=== PATIENT | female | born 1945 | race Caucasian/White ===

== ENCOUNTER → 2016-07-15 | Outpatient (CLI) | payer OTHER, MEDICARE ==
[~2016-07-15] MED LIST: B-COCAP2 PO; CHOL100010; DSY100 PO; ERGO500037 PO; FAMO40TA6 PO; FURO40TA3 PO; HYDR-3126 PO; HYDR-3785 PO; HYDR-389 PO; HYDR-5688 PO; LISI-461 PO; LORA-741 PO; MELA1TAB5 PO; MELO15TA4 PO; METO25TA3 PO; NRN/300 PO; NRN600 PO; NXM/40 PO; PANT40TA PO; RXC5 PO; TPRSR/50; TRZUNK PO
--- NOTE | 2016-07-15 14:11 | DIAGNOSTIC IMAGING REPORT ---
MRI OF THE LUMBAR SPINE WITHOUT CONTRAST CLINICAL HISTORY: Lumbar pain. COMPARISON STUDY: No previous studies for comparison. TECHNIQUE: Utilizing a 0.7 Mary open magnet and dedicated coil, multiplanar, multiecho imaging of the lumbar spine was performed without IV contrast. FINDINGS: For purposes of numbering on this exam, the L5-S1 disc space is assigned to axial image 23 of 25. There is 4 mm of anterolisthesis of L4 and L5. Vertebral body heights are maintained. There is no intracanalicular mass or fluid collection. Conus terminates at the lower L1 level. Paravertebral soft tissues are unremarkable. L1-2: There is a small central disc protrusion. The central canal and neural foramen are patent. L2-3: Central canal and neural foramen are patent. L3-4: Central canal and neural foramen are patent. L4-5: There is grade I anterolisthesis. This is likely due to facet arthrosis which is moderate in degree. There is an 8 mm T2 hyperintense focus within the posterior aspect of the left neural foramen and a 6 mm T2 hypertense focus within the posterior aspect of the right neural foramen. There is mild narrowing of the central canal and lateral recesses at this level with severe narrowing of the left neural foramen moderate narrowing of the right neural foramen. L5-S1: The central canal and neural foramen are patent. IMPRESSION: 1. Grade I anterolisthesis of L4 and L5 likely due to facet arthrosis. 2. Small central disc protrusion at L1-L2 without concentric canal narrowing at this level. 3. Severe left and moderate right neural foraminal stenosis at L4-L5 due to anterolisthesis and facet arthrosis. Small T2 hypertense foci within the posterior aspects of both neural foramen at this level could reflect small synovial cysts or perineural cysts. Electronically signed by: Eddie Kimble M.D. 07/15/2016 2:09 PM Dictated Date/Time: 07/15/2016 2:00 PM
== END | disposition home or self-care (01) ==
LOC: C.OPENMRI 12:40
PROVIDERS: ATTEND Orthopaedic Surgery Orthopaedic Surgery of the Spine
DX: M54.5 Low back pain (principal)

== ENCOUNTER 2016-08-14 10:48 | Inpatient (IN) | payer OTHER, MEDICARE ==
[2016-08-02 09:04] VITALS: BMI 43.0
--- NOTE | 2016-08-02 09:38 | PAT Medication Instructions ---
Service Date August 02, 2016. Current Home Medication List Cholecalciferol (Vitamin D), Unknown Dose WK Famotidine (Pepcid), 40 MG PO HS Furosemide (Lasix), 1 TAB PO QAM Gabapentin (Gabapentin), 600 MG PO TID Hydrocodone/Acetaminophen 5MG/325MG ([place] 5MG/325MG), 1 TABLET PO Q8 PRN for Pain Hydroxyzine Hcl (Atarax), Unknown Dose PO BID Lisinopril (Zestril), 10 MG PO QAM Lorazepam (Ativan), 0.5 MG PO TID Melatonin (Kp Melatonin), 1 TAB PO HS Meloxicam (Meloxicam), PO QAM Metoprolol Succinate (Toprol Xl), Unknown Dose PO QAM Pantoprazole (Protonix), 40 MG PO QAM Trazodone HCl (Trazodone HCl), 1 TAB PO HS Medication Instructions For Your Scheduled Surgery Cholecalciferol (Vitamin D), Unknown Dose WK (continue as usual on Sundays) - Hold the following medications the morning of surgery: Lisinopril (Zestril), 10 MG PO QAM Meloxicam (Meloxicam), PO QAM (not told to stop by surgeon) Furosemide (Lasix), 1 TAB PO QAM - Take the following medications the morning of surgery with a sip of water: Metoprolol Succinate (Toprol Xl), Unknown Dose PO QAM Pantoprazole (Protonix), 40 MG PO QAM Lorazepam (Ativan), 0.5 MG PO TID (if needed) Hydroxyzine Hcl (Atarax), Unknown Dose PO BID (if needed) Hydrocodone/Acetaminophen 5MG/325MG ([place] 5MG/325MG), 1 TABLET PO Q8 PRN for Pain (can take up to four hours prior to surgery if needed) Gabapentin (Gabapentin), 600 MG PO TID (if needed) - Take the following medications as scheduled the night before surgery: Trazodone HCl (Trazodone HCl), 1 TAB PO HS Melatonin (Kp Melatonin), 1 TAB PO HS Lorazepam (Ativan), 0.5 MG PO TID Hydroxyzine Hcl (Atarax), Unknown Dose PO BID Hydrocodone/Acetaminophen 5MG/325MG ([place] 5MG/325MG), 1 TABLET PO Q8 PRN for Pain Gabapentin (Gabapentin), 600 MG PO TID Famotidine (Pepcid), 40 MG PO HS If you have any questions please call us at [phone] or [phone] ( Sara) or [phone]
[2016-08-02 10:17] LABS: BASO % 0.5 %; BASO ABS # 0.02 K/uL (0-0.2); COMPLETE YES; EOS % 1.6 %; HEMATOCRIT 35.3 % (37-47); MEAN CELL VOLUME 90.5 fL (80-100); MEAN CORPUSCULAR HEMOGLOBIN 30.5 pg (25-34); MEAN CORPUSCULAR HGB CONC 33.7 g/dl (32-36); MEAN PLATELET VOLUME 9.4 fL (7.4-10.4); MONO % 14.8 %; NEUT % 39.1 %; PLATELET COUNT 143 K/uL (130-400); WHITE BLOOD COUNT 3.64 K/uL (4.8-10.8)
[2016-08-02 10:23] LABS: URINE APPEARANCE CLOUDY (CLEAR); URINE BILIRUBIN NEG (NEG); URINE COLOR YELLOW; URINE EPITHELIAL CELL AUTO >30 /lpf (0-5); URINE NITRITE NEG (NEG); URINE SPECIFIC GRAVITY 1.021 (1.000-1.030); UROBILINOGEN NEG (NEG)
--- NOTE | 2016-08-02 10:24 | DIAGNOSTIC IMAGING REPORT ---
CHEST PREADMISSION(PA/LAT) CLINICAL HISTORY: PAT preoperative evaluation COMPARISON STUDY: No previous studies for comparison. FINDINGS: The bones soft tissues and hemidiaphragms are normal. The cardiomediastinal silhouette is normal. The lungs are clear. The pulmonary vasculature is normal. IMPRESSION: Negative chest. Electronically signed by: Nuno Hudson M.D. 08/02/2016 10:22 AM Dictated Date/Time: 08/02/2016 10:22 AM
[2016-08-02 10:28] LABS: MANUAL MICROSCOPIC REQUIRED? NO; REVIEW REQ? NO
[2016-08-02 10:34] LABS: BUN/CREATININE RATIO 18.1 (10-20); CALCIUM 9.1 mg/dl (8.5-10.1); CREATININE 1.4 mg/dl (0.60-1.20); POTASSIUM 4.6 mmol/L (3.5-5.1)
[2016-08-14] VITALS (7 sets, daily range): BP systolic 132–159; BP diastolic 84–96; PULSE 61–72; TEMP 36.3–36.7; O2SAT 93–97; Ht 160 cm; Wt 111.4 kg
[~2016-08-14] VITALS: Ht 160 cm; Wt 111.4 kg
[~2016-08-14 10:48] MED LIST changes: -B-COCAP2 PO; +CEFAZOLIN 2000 MG/60 ML D5W IV SCH; -DSY100 PO; -ERGO500037 PO; -FAMO40TA6 PO; -FURO40TA3 PO; -HYDR-3126 PO; -HYDR-389 PO; +LACTATED RINGER'S 1000ML 1,000 ML IV SCH; -LISI-461 PO; -LORA-741 PO; -MELO15TA4 PO; -NRN/300 PO; -NXM/40 PO; -PANT40TA PO; -RXC5 PO; -TPRSR/50; -TRZUNK PO
--- NOTE | 2016-08-14 12:21 | History & Physical Bridge Note ---
H&P Re-Evaluation Bridge Note: I have examined the patient, reviewed the History & Physical and in the interval since the performance of the History & Physical I have noted the following changes of clinical significance: No changes noted
--- NOTE | 2016-08-14 12:22 | History and Physical ---
History & Physical Date Aug 14, 2016. Chief Complaint back and leg pain History of Present Illness The patient is a 71 year old female with complaints of Additional History Hepatic Disease: No Endocrine Disorder: No Kidney Disease: No Hypertension: No Heart Disease: No Bleeding Tendencies: No Infectious Diseases: No Allergies Coded Allergies: Meperidine (Verified Allergy, Severe, "THOUGHT I WAS DYING", HEADACHE, SOB , 08/14/16) Adhesives (Verified Allergy, Unknown, TAPE--SKIN SORENESS/RASH, 08/14/16) OKAY TO USE PAPER TAPE Home Medications Scheduled Cholecalciferol (Vitamin D), Unknown Dose WK Famotidine (Pepcid), 40 MG PO HS Furosemide (Lasix), 1 TAB PO QAM Gabapentin (Gabapentin), 600 MG PO TID Hydroxyzine Hcl (Atarax), Unknown Dose PO BID Lisinopril (Zestril), 10 MG PO QAM Lorazepam (Ativan), 0.5 MG PO TID Melatonin (Kp Melatonin), 1 TAB PO HS Meloxicam (Meloxicam), PO QAM Metoprolol Succinate (Toprol Xl), Unknown Dose PO QAM Pantoprazole (Protonix), 40 MG PO QAM Trazodone HCl (Trazodone HCl), 1 TAB PO HS Scheduled PRN Hydrocodone/Acetaminophen 5MG/325MG ([place] 5MG/325MG), 1 TABLET PO Q8 PRN for Pain Physical Examination Skin: warm/dry, no rash Eyes: normal inspection, EOMI, sclerae normal ENT: normal ENT inspection, pharynx normal Head: normocephalic, atraumatic Neck: supple, no adenopathy, trachea midline Respiratory/Chest: lungs clear, normal breath sounds, no respiratory distress Cardiovascular: regular rate, rhythm, no edema, no murmur Abdomen / GI: normal bowel sounds, non tender Back: normal inspection Extremities: normal inspection, normal range of motion Neurologic/Psych: no motor/sensory deficits, alert, normal reflexes, oriented x 3 Diagnosis lumbar stenosis Plan of Treatment decompression fusion L4-5
[2016-08-14] MEDS ORDERED: FENTANYL CITRATE INJ 50 MCG/1 ML 2 ML VIAL ONE ×3 (12:59→15:29)
[2016-08-14] MEDS ORDERED: MIDAZOLAM HCL 1 MG/ML 2ML VIAL ONE (12:59)
[2016-08-14] MEDS ORDERED: BACITRACIN 50000 UNIT VIAL ONE (13:08)
[2016-08-14] MEDS ORDERED: SODIUM CHLORIDE 0.9% PF 50 ML VIAL ONE (13:08)
[2016-08-14] MEDS ORDERED: BUPIVACAINE/EPINEPHRINE 0.5% MPF 1:200,000 30 ML VIAL ONE (13:08)
[2016-08-14] MEDS ORDERED: HYDROmorphone INJ 2 MG/ML SYR/VIAL ONE (13:38)
[2016-08-14] MEDS ORDERED: ROCURONIUM BROMIDE 10 MG/ML 5 ML VIAL ONE (13:50)
[2016-08-14] MEDS ORDERED: PROPOFOL IV EMULSION 10 MG/ML 20 ML VIAL IV ONE (13:50)
[2016-08-14] MEDS ORDERED: GLYCOPYRROLATE INJ 0.2 MG/ML VIAL ONE (13:50)
[2016-08-14] MEDS ORDERED: LIDOCAINE HCL 2% 2 ML VIAL (20MG/ML) ONE (13:50)
[2016-08-14] MEDS ORDERED: NEOSTIGMINE METHYLSULFATE 1 MG/ML 10ML VIAL ONE (13:50)
[2016-08-14] MEDS ORDERED: DEXAMETHASONE SOD INJ 4 MG/ML VIAL ONE (13:50)
[2016-08-14] MEDS ORDERED: ONDANSETRON INJ 2 MG/ML 2 ML VIAL ONE (13:50)
[2016-08-14] MEDS ORDERED: EpHEDrine SULFATE INJ 50 MG/ML AMP IV PRN (14:45)
[2016-08-14] MEDS ORDERED: PROMETHAZINE HCL INJ 6.25 MG in SODIUM CHLORIDE 0.9% 50ML 50 ML IV PRN (14:45)
[2016-08-14] MEDS ORDERED: HYDROmorphone INJ 1 MG/ML SYR IV PRN (14:45)
[2016-08-14] MEDS ORDERED: FENTANYL CITRATE INJ 50 MCG/1 ML 2 ML VIAL IV PRN (14:45)
[2016-08-14] MEDS ORDERED: ATROPINE SULFATE 0.1 MG/ML 5ML SYR IV PRN (14:45)
[2016-08-14] MEDS ORDERED: ONDANSETRON INJ 2 MG/ML 2 ML VIAL IV PRN ×2 (14:45→15:00)
[2016-08-14] MEDS ORDERED: FLOSEAL HEMOSTATIC MATRIX 10ML TOP ONE (14:56)
[2016-08-14] MEDS ORDERED: SODIUM CHLORIDE 0.9% 1000ML 1,000 ML IV SCH (14:59)
--- NOTE | 2016-08-14 14:59 | [facility] Post Operative Brief Note ---
Immediate Operative Summary Operative Date Aug 14, 2016. Pre-Operative Diagnosis Lumbar Stenosis Post-Operative Diagnosis Lumbar Stenosis Procedure(s) Performed tlif Surgeon Dr. Tomer Coates Picking Table Worker Surgeon(s) Mayda Teixeira PA-C Estimated Blood Loss 250mL Findings stenosis Specimens none per surgeon
[2016-08-14] MEDS ORDERED: METOCLOPRAMIDE HCL INJ 5 MG/ML 2 ML VIAL IV PRN (15:00)
[2016-08-14] MEDS ORDERED: BISACODYL 10 MG SUPP PR PRN (15:00)
[2016-08-14] MEDS ORDERED: LORAZEPAM INJ 0.5 MG in SYRINGE 0 ML IV PRN (15:00)
[2016-08-14] MEDS ORDERED: SOD PHOSPHATE/SOD BIPHOSPHATE ENEMA 132 ML BTL PR PRN (15:00)
[2016-08-14] MEDS ORDERED: FAMOTIDINE 20 MG TAB PO PRN (15:00)
[2016-08-14] MEDS ORDERED: ALUMINUM/MAGNESIUM SUSP 30 ML UDC PO PRN (15:00)
[2016-08-14] MEDS ORDERED: DO NOT ADMINISTER PNEUMOCOCCAL VACCINE PRN ×2 (15:00)
[2016-08-14] MEDS ORDERED: ACETAMINOPHEN IV 100 ML IV PRN (15:00)
[2016-08-14] MEDS ORDERED: LORAZEPAM 0.5 MG TAB PO PRN (15:00)
[2016-08-14] MEDS ORDERED: ACETAMINOPHEN 500 MG TAB PO PRN (15:00)
[2016-08-14] MEDS ORDERED: hydrOXYzine HCL 25 MG TAB PO PRN (15:00)
[2016-08-14] MEDS ORDERED: PROMETHAZINE HCL INJ 12.5 MG in SODIUM CHLORIDE 0.9% 50ML 50 ML IV PRN (15:00)
[2016-08-14] MEDS ORDERED: DO NOT ADMINISTER FLU VACCINE PRN ×3 (15:00)
[2016-08-14] MEDS ORDERED: NALOXONE HCL 0.4 MG/1 ML VIAL/CARP IV PRN ×2 (15:00)
[2016-08-14] MEDS ORDERED: MAGNESIUM HYDROXIDE SUSP 30 ML UDC PO PRN (15:00)
--- NOTE | 2016-08-14 15:13 | DIAGNOSTIC IMAGING REPORT ---
Lumbar spine LUMBAR SPINE 2 OR 3 VIEW CLINICAL HISTORY: L4-5 DECOMPRESSION/FUSION/INTERBODY TECHNIQUE: Image intensifier COMPARISON STUDY: None FINDINGS: Findings consistent with an L4-L5 laminectomy and fusion. Disc spacers present. IMPRESSION: L4-L5 laminectomy and fusion Electronically signed by: Nuno Hudson M.D. 08/14/2016 3:12 PM Dictated Date/Time: 08/14/2016 3:11 PM
[2016-08-14] MEDS ORDERED: HYDROmorphone HCL 0.5MG/ML 50 ML CASSETTE ONE (15:24)
--- NOTE | 2016-08-14 16:06 | Anesthesiology Progress Note ---
Anesthesia Post Op Note Date & Time Aug 14, 2016 at 16:06 Vital Signs Pain Intensity: 3 Vital Signs Past 12 Hours Date Time Temp Pulse Resp B/P (MAP) Pulse Ox O2 Delivery O2 Flow Rate FiO2 08/14/16 15:55 64 12 163/83 95 Nasal Cannula 3 08/14/16 15:45 91 12 161/88 100 Diffusion Mask 10 08/14/16 15:35 91 12 171/83 100 Diffusion Mask 10 08/14/16 15:25 91 12 163/85 100 Diffusion Mask 10 08/14/16 15:18 36.7 91 12 176/90 100 Diffusion Mask 10 08/14/16 11:28 36.4 72 18 150/89 97 Room Air Notes Mental Status: alert / awake / arousable, participated in evaluation Pt Amnestic to Procedure: Yes Nausea / Vomiting: adequately controlled Pain: adequately controlled Airway Patency, RR, SpO2: stable & adequate BP & HR: stable & adequate Hydration State: stable & adequate Anesthetic Complications: no major complications apparent
[2016-08-14] MEDS: HYDROmorphone HCL 0.5MG/ML 50 ML CASSETTE IV PRN ×2 (16:43→22:55)
--- NOTE | 2016-08-14 16:49 | OPERATIVE REPORT ---
DATE OF OPERATION: 08/14/2016 PREOPERATIVE DIAGNOSES: Spinal stenosis, spondylolisthesis. POSTOPERATIVE DIAGNOSES: Same. PROCEDURES PERFORMED: 1. Lumbar decompression, medial facetectomy, and foraminotomy L3-4, L4-5. 2. Posterior spinal fusion L4-5. 3. Placement posterior instrumentation using Orthros rods and screws L4-5. 4. Interbody fusion L4-5. 5. Placement of PEEK cage 13 x 26 mm at L4-5. 6. Placement of locally harvested morcellized autograft posterior gutters. 7. Placement of Infuse collagen sponge combined with Mastergraft in posterior gutters and Jimena bone grafting in the interbody space. SURGEON: Dr. Micah Coates. DOORKEEPER: Mayda Teixeira PA-C. Due to the complex nature of the procedure, the entire surgery was performed with the anesthesiologists' assistant of DHARMESH Dacosta. The floral assistant, under direct supervision, was involved in the actual performance of all aspects of the surgical procedure including hemostasis, tissue retraction and incision, instrument management, patient positioning, and wound closure. ANESTHESIA: General. DISPOSITION: The patient awakened and taken to PACU in stable condition. HISTORY OF PATIENT'S PROBLEMS: This is a 71-year-old female who presents with above-mentioned diagnosis after failing an extensive course of nonoperative care, elected to undergo the above-mentioned procedure. Risks, benefits, pros, cons, and alternatives were outlined in detail preoperatively. DESCRIPTION OF PROCEDURE: The patient was met with preoperatively, the case discussed and all questions were addressed. At that point, the patient was taken back to operative suite and after undergoing successful general intubation by the department of anesthesia was placed in prone position on Fernando table atop Juan frame. All bony prominences were well padded and the eyes were inspected to ensure there was no external pressure placed upon them. At this point, lumbar spine was prepped and draped in normal sterile fashion. Sharp dissection with the assistance of Bovie cautery was performed down to and exposing the lamina and transverse processes of L4-5 bilaterally. From a caudal to cephalad fashion, complete laminectomy of L4, partial laminectomy of L3 was performed addressing severe stenosis. This included bilateral medial facetectomies, foraminotomies to address compression. After this was complete, pedicle screws were placed in L4-5 bilaterally with assistance of fluoroscopy and appropriate size delmi provisionally placed. Through transforaminal approach on the right, a complete discectomy of L4-5 was performed, endplates curetted to subcortical bleeding bone and a 13 x 26 mm PEEK cage filled with Jimena bone grafting tapped into position. The rods were then compressed, locked into final position bilaterally and transverse processes of L4-5 burred to subcortical bleeding bone. Infuse collagen sponge combined with Mastergraft and locally harvested morcellized autograft was placed in the posterior gutters. A 7 flat RONNY drain was inserted. Incision was closed with 1-0 Vicryl in the fascia, 2-0 Vicryl subcutaneously, 4-0 Monocryl for final skin closure. Steri-Strips and sterile dressing placed. The patient was awakened and taken to PACU in stable condition. I attest to the content of the Intraoperative Record and any orders documented therein. Any exception s are noted below.
[2016-08-14] MEDS: LACTATED RINGER'S 1000ML 1,000 ML IV SCH ×2 (19:04→21:20)
[2016-08-14] MEDS: TRAZODONE HCL 100 MG TAB PO SCH (21:00)
[2016-08-14] MEDS: CEFAZOLIN IV 2,000 MG in DEXTROSE 5% 50ML 50 ML IV SCH (21:05)
[2016-08-14] MEDS: DOCUSATE SODIUM/SENNA 50/8.6MG TAB PO SCH (21:19)
[2016-08-14] MEDS: GABAPENTIN 600 MG TAB PO SCH (21:19)
[2016-08-14] MEDS: DEXAMETHASONE INJ 6 MG in SYRINGE 0 ML IV SCH (21:20)
[2016-08-14] MEDS: FAMOTIDINE 20 MG TAB PO SCH (21:54)
[2016-08-15 03:38] VITALS: BP 136/84; PULSE 80; TEMP 36.8; O2SAT 93
[2016-08-15] MEDS: LACTATED RINGER'S 1000ML 1,000 ML IV SCH ×2 (04:16→10:43)
[2016-08-15] MEDS: CEFAZOLIN IV 2,000 MG in DEXTROSE 5% 50ML 50 ML IV SCH (05:06)
[2016-08-15] MEDS: DEXAMETHASONE INJ 6 MG in SYRINGE 0 ML IV SCH ×2 (05:37→13:46)
[2016-08-15] MEDS: OXYCODONE HCL IR 5 MG TAB (IMMEDIATE RELEASE) PO PRN ×4 (05:39→22:01)
[2016-08-15] MEDS ORDERED: DC PCA SCH (06:00)
[2016-08-15] MEDS ORDERED: HYDROmorphone INJ 1 MG/ML SYR IV PRN ×2 (06:00)
[2016-08-15 06:46] LABS: COMPLETE YES; HEMATOCRIT 32.3 % (37-47); IG% 0.3 %; LYMPH % 9.4 %; LYMPH ABS # 0.81 K/uL (1.2-3.4); MEAN CELL VOLUME 89.2 fL (80-100); MEAN CORPUSCULAR HEMOGLOBIN 30.4 pg (25-34); MEAN CORPUSCULAR HGB CONC 34.1 g/dl (32-36); MONO % 5.6 %; NEUT % 84.7 %; PLATELET COUNT 142 K/uL (130-400); RED BLOOD COUNT 3.62 M/uL (4.2-5.4); WHITE BLOOD COUNT 8.63 K/uL (4.8-10.8)
[2016-08-15 07:13] LABS: BUN/CREATININE RATIO 17.7 (10-20); CALCIUM 8.8 mg/dl (8.5-10.1); CREATININE 1.2 mg/dl (0.60-1.20); POTASSIUM 4.6 mmol/L (3.5-5.1)
[2016-08-15 07:27] VITALS: BP 112/75; PULSE 75; TEMP 36.8; O2SAT 91
--- NOTE | 2016-08-15 08:06 | Clinical Documentation Query ---
JEANIE Willis : CLINICAL DOCUMENTATION QUERIES QUERY 1 OF 2 Patient is a 71 year old female who on 08/14 underwent posterior lumbar decompression and spinal fusion. BMI noted to be 43.5 kg/m*m. In order to capture this from the record, the associated condition (e.g. overweight, obese, etc...) must be explicitly documented by the provider. In your clinical opinion is this patient: ( ) Obese, BMI 43.5 kg/m*m ( ) Other explanation of clinical findings (Please Explain) ( ) Unable to determine (Please Define) ( ) Need to Discuss ( ) Not Agree The medical record reflects the following clinical findings, treatment, and risk factors. Clinical Indicators: As above Treatment: n/a Risk Factors: caloric intake > output, physical inactivity, medications, pain Clarification - BMI Reporting Coding Clinic [id number], p15 Question: There has been some confusion as to whether nursing staff documentation is acceptable for assigning BMI. Since hospitals are allowed to code the BMI based on the buffing line set up worker's documentation, it would seem reasonable to assign the BMI based on the nurse's documentation as well. Can coders use nursing documentation to assign the BMI? Answer: Yes, the BMI can be assigned based on medical record documentation from clinicians, including nurses and dieticians who are not the patient's provider. As stated in the Official Guidelines for Coding and Reporting, BMI code assignment may be based on medical record documentation from clinicians who are not the patient's provider, since this information is typically documented by other clinicians involved in the care of the patient. Dieticians were only mentioned as an example of a clinician that might document BMI information. However, the associated diagnosis (such as overweight, obesity, or underweight) must be documented by the provider. QUERY 2 OF 2 H&P states no PMH. However, home medication list includes: Cholecalciferol (Vitamin D), Unknown Dose WK Famotidine (Pepcid), 40 MG PO HS Furosemide (Lasix), 1 TAB PO QAM Gabapentin (Gabapentin), 600 MG PO TID Hydroxyzine Hcl (Atarax), Unknown Dose PO BID Lisinopril (Zestril), 10 MG PO QAM Lorazepam (Ativan), 0.5 MG PO TID Melatonin (Kp Melatonin), 1 TAB PO HS Meloxicam (Meloxicam), PO QAM Metoprolol Succinate (Toprol Xl), Unknown Dose PO QAM Pantoprazole (Protonix), 40 MG PO QAM Trazodone HCl (Trazodone HCl), 1 TAB PO HS and historical EMR note a history of the following. In your clinical opinion is this patient being managed for: ( ) GERD, osteoporosis, hypertension, depression, anxiety, panic disorder ( ) Other explanation of clinical findings (Please Explain) ( ) Unable to determine (Please Define) ( ) Need to Discuss ( ) Not Agree The medical record reflects the following clinical findings, treatment, and risk factors. Clinical Indicators: As above Treatment: As above Risk Factors: n/a Please clarify and document your clinical opinion in the progress notes and discharge summary. Terms such as "probable", "suspected", "likely", "questionable", "possible", or "still to be ruled out" are acceptable. IF IN AGREEMENT, YOU MUST DOCUMENT ABOVE DIAGNOSTIC STATEMENT IN DAILY PROGRESS NOTES AND DISCHARGE SUMMARY. This document is not part of the patient's record.
[2016-08-15] MEDS: PANTOprazole SOD 40 MG TAB PO SCH (08:55)
[2016-08-15] MEDS: LISINOPRIL 10 MG TAB PO SCH (08:55)
[2016-08-15] MEDS: GABAPENTIN 600 MG TAB PO SCH ×3 (08:56→21:59)
[2016-08-15] MEDS: FUROSEMIDE 40 MG TAB PO SCH (08:56)
[2016-08-15 10:28] VITALS: BP 153/89; PULSE 79; O2SAT 95
--- NOTE | 2016-08-15 10:28 | Anesthesiology Progress Note ---
Anesthesia Post Op Note Date & Time Aug 15, 2016 at 10:28 Vital Signs Pain Intensity: 5.0 Vital Signs Past 12 Hours Date Time Temp Pulse Resp B/P (MAP) Pulse Ox O2 Delivery O2 Flow Rate FiO2 08/15/16 07:27 36.8 75 16 112/75 (87) 91 Room Air 08/15/16 07:20 Room Air 08/15/16 03:38 36.8 80 16 136/84 (101) 93 Room Air 08/14/16 23:30 Room Air 08/14/16 23:21 36.6 67 16 132/87 (102) 93 Room Air Notes Mental Status: alert / awake / arousable, participated in evaluation Pt Amnestic to Procedure: Yes Nausea / Vomiting: adequately controlled Pain: adequately controlled Airway Patency, RR, SpO2: stable & adequate BP & HR: stable & adequate Hydration State: stable & adequate Anesthetic Complications: no major complications apparent
[2016-08-15 11:46] VITALS: BP 117/77; PULSE 66; TEMP 36.6; O2SAT 96
[2016-08-15] MEDS ORDERED: RXC5 PO (13:00)
--- NOTE | 2016-08-15 13:01 | Discharge Instructions ---
Discharge Instructions Date of Service Aug 15, 2016. Admission Reason for Admission: Spinal Stenosis Discharge Discharge Diagnosis / Problem: stenosis Discharge Goals Goal(s): Improve function Activity Recommendations Activity Limitations: per Instructions/Follow-up section . Instructions / Follow-Up Instructions / Follow-Up ACTIVITY RECOMMENDATIONS: SELF CARE INSTRUCTIONS AFTER THORACIC/LUMBAR FUSIONS 1. You may walk to your tolerance. It is good exercise for your legs and back. Expect some back and intermittent leg aches and pains. 2. You may perform "counter-top" level activities (make a sandwich, giuseppe with a project, etc.). 3. No bending or lifting of more than 10 pounds or back twisting of any nature (roll like a log when turning in bed). 4. You may ride in a car for 20-30 minutes at a time. No driving until after your first visit with your doctor. 5. Frequent changes of position and restricting sitting to 30 minutes at a time will help limit the amount of back spasms and stiffness you may experience. 6. You may discontinue the use of ambulatory aids (cane, crutches, etc.) once your strength and confidence allow. 7. You may culinary intern the shower and let water strike your incision when you arrive home at least once daily. Do not take a tub bath, sit in a hot tub or go into a swimming pool until after your first recheck in the office. SPECIAL CARE INSTRUCTIONS: VERY IMPORTANT TO READ AND REVIEW A. Your surgical incision has been closed with a cosmetic suture under the skin that will dissolve in about 6 weeks. In 14 days, you can use a pair of clean scissors and cut the suture that is left outside of the skin at the ends of your incision. 1. The small skin tapes can be removed 7 days after surgery if they have not fallen off by that point. 2. You may keep the wound open to air as much as possible to promote healing after post-op day number 5 unless told otherwise by your doctor. 3. If you think the wound looks like it is becoming infected (redness or worsening drainage) and/or you are experiencing fever, chill or worsening back pain and muscle spasms, contact the office so that we may evaluate you as soon as possible. B. Complications are uncommon, but please contact us if you have any signs or symptoms of: 1. wound infection (fever higher than 102.5 degrees F, redness, separation of wound, drainage, or increasing pain from the incision) 2. blood clots in legs (pain, swelling, redness and warmth in legs) 3. urinary tract infection (fever higher than 102.5 degrees F, burning upon urination or increased frequency of urination) 4. nerve problems (inability to walk on your toes or heels, numbness, loss of bowel or bladder control) 5. any other symptoms that concern you C. Please call the office at if you have any concerns or questions about your operation or recovery. D. No smoking! Smoking drastically decreases the chance of a solid fusion. E. Do not take any anti-inflammatory medications (Indocin, Advil, Motrin, Aspirin, Naprosyn, etc.) as these may inhibit the chance of a solid fusion. Tylenol is okay to take for pain. MANAGING PAIN AFTER SPINAL SURGERY 1. Narcotic medication is intended for short-term use and will be provided for surgical pain. Surgical pain usually lasts for a period of 4-6 weeks. Narcotic medication includes Percocet, Vicodin, Darvocet, Tylenol #3 or Lortab. 2. Longer-term pain is more appropriately treated with non-narcotic medication such as Tylenol ES. 3. Muscle spasm is not appropriately treated with narcotics. Muscle relaxers such as Soma, Flexeril or Skelaxin can be used along with Tylenol ES. 4. Remember that we all live with some "aches and pains". This is not unusual or uncommon after an injury or as we get older. a. Back pain is expected and may include muscle spasms for 4 to 6 weeks after surgery. The pain should gradually improve. If the pain worsens for no apparent reason, please contact the office. b. Intermittent leg pain may also be experienced and should not be concerned about unless it worsens for no apparent reason. If so, please contact the office. 5. We will provide appropriate medication within the normal guidelines of their prescribed use. We will also be very cautious and aware of potential abuse and extended duration of patients' medication needs. a. Pain medications are for your comfort and to assist with sleep and rest so that the tissue can heal. They are not provided in order to return to normal activity and should not be used through the day. To do so or worsening pain at night can result from ongoing tissue damage and development of tolerance to the prescribed medicine. 6. Please allow 2-3 days to process refills. Prescriptions will not be mailed but must be picked up at the office. FOLLOW UP VISIT: Keep your scheduled follow-up appointment. Any questions, please call the office at . Current Hospital Diet Patient's current hospital diet: Regular Diet Discharge Diet Recommended Diet: Regular Diet Procedures Procedures Performed: tlif Pending Studies Studies pending at discharge: no Medical Emergencies . Who to Call and When: Medical Emergencies: If at any time you feel your situation is an emergency, please call 911 immediately. . Non-Emergent Contact Non-Emergency issues call your: Primary Care Provider . "Provider Documentation" section prepared by Micah Coates. . VTE Core Measure Inpt VTE Proph given/why not?: Manjeet Padilla, SCD's
--- NOTE | 2016-08-15 14:52 | PROGRESS NOTE ---
DATE: 08/15/2016 Postop day 1. Back pain controlled. Leg pain improved. Vital signs stable. T-max 36.8. RONNY drained 195 mL today. Hematocrit stable at 32.3. On exam, she has good strength to testing, appears comfortable. ASSESSMENT: Status post lumbar decompression and fusion. PLAN: At this time, we will continue physical therapy, advance her bowel regimen and anticipate home Friday or Friday.
[2016-08-15] MEDS ORDERED: NURSING VERBAL MED ORDER ONE (15:15)
[2016-08-15 16:42] VITALS: BP 153/91; PULSE 65; TEMP 36.8; O2SAT 94
[2016-08-15] MEDS: TRAZODONE HCL 100 MG TAB PO SCH (22:01)
[2016-08-15] MEDS: FAMOTIDINE 20 MG TAB PO SCH (22:01)
[2016-08-15] MEDS: DOCUSATE SODIUM/SENNA 50/8.6MG TAB PO SCH (22:02)
[2016-08-15 23:12] VITALS: BP 143/81; PULSE 64; TEMP 36.4; O2SAT 94
[2016-08-16] MEDS: OXYCODONE HCL IR 5 MG TAB (IMMEDIATE RELEASE) PO PRN ×3 (05:38→23:51)
[2016-08-16] MEDS: POLYETHYLENE (MIRALAX) 17 GM PACK PO SCH ×4 (05:38→23:50)
[2016-08-16 06:56] VITALS: BP 148/96; PULSE 59; TEMP 36.5; O2SAT 94
[2016-08-16] MEDS: GABAPENTIN 600 MG TAB PO SCH ×3 (08:47→21:03)
[2016-08-16] MEDS: LISINOPRIL 10 MG TAB PO SCH (08:47)
[2016-08-16] MEDS: PANTOprazole SOD 40 MG TAB PO SCH (08:48)
[2016-08-16] MEDS: FUROSEMIDE 40 MG TAB PO SCH (08:48)
[2016-08-16 11:26] VITALS: BP 118/80; PULSE 70; O2SAT 97
--- NOTE | 2016-08-16 13:09 | PROGRESS NOTE ---
DATE: 08/14/2016 DATE: 08/16/2016. SUBJECTIVE: Postop day #2. Back pain is controlled. Leg pain improved. Vital signs stable. T-max 36.5. RONNY drained 50 mL today. OBJECTIVE: On exam, patient has good strength to testing. Appears comfortable. ASSESSMENT: Status post lumbar decompression and fusion. PLAN: At this time, we will maintain the RONNY drain another day. Anticipate home tomorrow. The patient understands and agrees.
[2016-08-16 15:07] VITALS: BP 149/93; PULSE 69; TEMP 36.5; O2SAT 97
[2016-08-16 16:00] VITALS: O2SAT 97
[2016-08-16] MEDS: TRAZODONE HCL 100 MG TAB PO SCH (21:03)
[2016-08-16] MEDS: DOCUSATE SODIUM/SENNA 50/8.6MG TAB PO SCH (21:03)
[2016-08-16] MEDS: FAMOTIDINE 20 MG TAB PO SCH (21:04)
[2016-08-16 23:01] VITALS: BP 131/78; PULSE 80; TEMP 36.8; O2SAT 95
[2016-08-17] MEDS: POLYETHYLENE (MIRALAX) 17 GM PACK PO SCH (05:39)
[2016-08-17] MEDS: OXYCODONE HCL IR 5 MG TAB (IMMEDIATE RELEASE) PO PRN ×2 (05:40→10:37)
[2016-08-17 07:35] VITALS: BP 109/78; PULSE 100; TEMP 37.3; O2SAT 92
[2016-08-17] MEDS: FUROSEMIDE 40 MG TAB PO SCH (08:31)
[2016-08-17] MEDS: LISINOPRIL 10 MG TAB PO SCH (08:32)
[2016-08-17] MEDS: PANTOprazole SOD 40 MG TAB PO SCH (08:32)
[2016-08-17] MEDS: GABAPENTIN 600 MG TAB PO SCH (08:33)
--- NOTE | 2016-08-17 10:17 | DISCHARGE SUMMARY ---
DATE OF DISCHARGE: 08/17/2016. PRINCIPAL DIAGNOSIS: Spinal stenosis. HOSPITAL COURSE FOLLOWS: On 08/14/2016 the patient underwent lumbar decompression and fusion, tolerated this well and taken to the orthopedic floor postoperatively. Postop day #1, she was up and ambulatory and progressed to postop day 2. Postop day #3, pain well controlled. RONNY drain decreased appropriately. Subsequently discharged home. Discharge orders and instructions can be found on the chart for further review.
[2016-08-17 10:20] VITALS: BP 109/78; PULSE 100; TEMP 37.3; O2SAT 92
[2016-10-05] MEDS ORDERED: PANT40TA PO (09:03)
[2016-10-05] MEDS ORDERED: FAMO40TA6 PO (09:03)
[2016-10-05] MEDS ORDERED: DSY100 PO (09:03)
[2016-10-05] MEDS ORDERED: LISI-461 PO (09:04)
[2016-10-05] MEDS ORDERED: FURO40TA3 PO (11:29)
== END 2016-08-17 11:13 | disposition home or self-care (01) | DRG 460 ==
LOC: C.ACU 10:48 → C.3E 12:30 → ENRESERV 15:55
PROVIDERS: ADMIT Orthopaedic Surgery Orthopaedic Surgery of the Spine; ATTEND Orthopaedic Surgery Orthopaedic Surgery of the Spine
PROC: 0SG00A1 (ICD-10-PCS; principal; 2016-08-14 13:30)
PROC: 0ST20ZZ Resection of Lumbar Vertebral Disc, Open Approach (ICD-10-PCS; principal; 2016-08-14 13:30)
DX: M48.06 Spinal stenosis, lumbar region (principal)

== ENCOUNTER 2016-10-05 14:30 | Emergency (ER) | payer OTHER, MEDICARE ==
[~2016-10-05] VITALS: Ht 162.6 cm; Wt 106.0 kg
[~2016-10-05 14:30] MED LIST changes: -CEFAZOLIN 2000 MG/60 ML D5W IV SCH; +DSY100 PO; +FAMO40TA6 PO; +FURO40TA3 PO; -LACTATED RINGER'S 1000ML 1,000 ML IV SCH; +LISI-461 PO; +PANT40TA PO; +RXC5 PO
[2016-10-05 14:34] VITALS: BP 132/89; TEMP 36.5; Ht 162.6 cm; Wt 106.0 kg
[2016-10-05] MEDS ORDERED: LORA-741 PO (14:51)
[2016-10-05] MEDS ORDERED: MELO15TA4 PO (14:51)
--- NOTE | 2016-10-05 15:34 | EMERGENCY ROOM VISIT NOTE ---
ED Visit Note First contact with patient: 15:26 The patient was seen and examined with Tiffany Hudson PA-C. I agree with the history, physical and findings. Please see the note for disposition and details.
--- NOTE | 2016-10-05 15:44 | EMERGENCY ROOM VISIT NOTE ---
ED Visit Note First contact with patient: 15:26 CHIEF COMPLAINT: Right eye redness HISTORY OF PRESENT ILLNESS: This 71-year-old female presents the ER with chief complaint of her right eye being red. The patient denies any trauma to the eye. The patient denies any eye pain or any visual changes or dizziness. The patient states that she leaned over the sink this morning to wash her hair. A few hours later she noticed that her right eye was red. She states that her granddaughter insisted that she come to the emergency room. She states [place] way to the beach and wanted to make sure was okay before she left on vacation. REVIEW OF SYSTEMS: 6 system review was performed and was negative unless stated otherwise in history of present illness. PMH: The patient is healthy; kidney disease, stomach problems, back surgery, cholecystectomy SOCIAL HISTORY: Patient lives with her PHYSICAL EXAM: Vital Signs: Were reviewed Reviewed Nurse's notes. GENERAL: 71- year-old white female appears in no acute distress. MENTAL Status: Alert and oriented 3. EYES: PERRLA, EOMs intact. Right subconjunctival hemorrhage noted. EMERGENCY DEPARTMENT COURSE: The patient was evaluated. The patient's EMR medication list were reviewed. The patient's pressure in her left eye was 14.5 and pressure in her right eye was 14.8. These are within normal range. The patient was independently evaluated byDr. Brown who agreed with treatment plan. The patient was discharged home in stable condition. DIAGNOSIS: Corneal abrasion DISCHARGE INSTRUCTIONS AND TREATMENT: No significant treatment necessary. This will take several weeks to resolve. If you would experience any severe eye pain, visual changes seek further medical attention immediately. Current/Historical Medications Scheduled Cholecalciferol (Vitamin D), Unknown Dose WK Famotidine (Pepcid), 40 MG PO HS Furosemide (Lasix), 1 TAB PO QAM Gabapentin (Gabapentin), 600 MG PO TID Hydroxyzine Hcl (Atarax), Unknown Dose PO BID Lisinopril (Zestril), 10 MG PO QAM Lorazepam (Ativan), 0.5 MG PO TID Melatonin (Kp Melatonin), 1 TAB PO HS Meloxicam (Meloxicam), PO QAM Metoprolol Succinate (Toprol Xl), Unknown Dose PO QAM Pantoprazole (Protonix), 40 MG PO QAM Trazodone HCl (Trazodone HCl), 1 TAB PO HS Scheduled PRN Hydrocodone/Acetaminophen 5MG/325MG ([place] 5MG/325MG), 1 TABLET PO Q8 PRN for Pain Oxycodone HCl (Oxycodone HCl), 5-10 MG PO Q4H PRN for Moderate - severe pain Allergies Coded Allergies: Meperidine (Verified Allergy, Intermediate, "THOUGHT I WAS DYING", HEADACHE, SOB, 08/14/16) Adhesives (Verified Allergy, Unknown, TAPE--SKIN SORENESS/RASH, 08/14/16) OKAY TO USE PAPER TAPE Vital Signs Date Time Temp Pulse Resp B/P (MAP) Pulse Ox O2 Delivery O2 Flow Rate FiO2 10/05/16 14:34 36.5 80 20 132/89 94 Room Air Departure Information Referrals Ricky Fontanez M.D. (PCP) Patient Instructions My [facility]
[2016-10-05] MEDS ORDERED: ERGO500037 PO (15:45)
[2016-10-05] MEDS ORDERED: TPRSR/50 (15:45)
[2016-10-05] MEDS ORDERED: HYDR-3126 PO (15:45)
[2016-10-05] MEDS ORDERED: HYDR-389 PO (15:45)
[2016-10-05] MEDS ORDERED: NRN/300 PO (15:45)
[2016-10-05 15:53] VITALS: PULSE 76; O2SAT 94
== END 2016-10-05 15:54 | disposition home or self-care (01) ==
LOC: C.EDB 14:32 → C.EDD 15:54
DX: S05.01XA Injury of conjunctiva and corneal abrasion without foreign body, right eye, initial encounter (principal); X58.XXXA Exposure to other specified factors, initial encounter; N28.9 Disorder of kidney and ureter, unspecified; Z79.899 Other long term (current) drug therapy

== ENCOUNTER 2018-12-02 10:14 | Inpatient (IN) ==
--- NOTE | 2018-11-14 14:53 | PAT Medication Instructions ---
Medication Instructions Date of Service November 14, 2018 Home Medications acetaminophen 1,000 mg PO Q6H PRN cyanocobalamin (vitamin B-12) [Vitamin B-12] 1,000 mcg PO QAM ergocalciferol (vitamin D2) [Vitamin D2] 50,000 unit PO WK furosemide [Lasix] 40 mg PO QAM gabapentin 300 mg PO TID hydrocodone-acetaminophen 1 tab PO Q6 PRN hydroxyzine HCl 10 mg PO BID hydroxyzine HCl 50 mg PO HS lisinopril 10 mg PO QAM lorazepam 0.5 mg PO Q6 PRN lorazepam 1 mg PO DAILY PRN metoprolol succinate [Toprol XL] 50 mg PO QAM pantoprazole [Protonix] 40 mg PO QAM ranitidine HCl [Zantac] 150 mg PO HS rosuvastatin 20 mg PO QAM trazodone 200 mg PO HS DO NOT take the morning of surgery cyanocobalamin (vitamin B-12) [Vitamin B-12] 1,000 mcg PO QAM ergocalciferol (vitamin D2) [Vitamin D2] 50,000 unit PO WK furosemide [Lasix] 40 mg PO QAM hydroxyzine HCl 10 mg PO BID lisinopril 10 mg PO QAM Take morning of surgery With a small sip of water, OTHERWISE NOTHING TO EAT OR DRINK AFTER MIDNIGHT: acetaminophen 1,000 mg PO Q6H PRN (okay to take up to 4 hours prior to surgery if needed) gabapentin 300 mg PO TID hydrocodone-acetaminophen 1 tab PO Q6 PRN (okay to take up to 4 hours prior to surgery if needed) lorazepam 0.5 mg PO Q6 PRN (if needed) lorazepam 1 mg PO DAILY PRN (if needed) metoprolol succinate [Toprol XL] 50 mg PO QAM pantoprazole [Protonix] 40 mg PO QAM rosuvastatin 20 mg PO QAM Take evening before surgery acetaminophen 1,000 mg PO Q6H PRN (if needed) gabapentin 300 mg PO TID hydrocodone-acetaminophen 1 tab PO Q6 PRN (if needed) hydroxyzine HCl 10 mg PO BID hydroxyzine HCl 50 mg PO HS lorazepam 0.5 mg PO Q6 PRN (if needed) lorazepam 1 mg PO DAILY PRN (if needed) ranitidine HCl [Zantac] 150 mg PO HS trazodone 200 mg PO HS Other Notes If you have any questions please call us at [phone] or [phone] or [phone] or [phone]
--- NOTE | 2018-11-16 13:41 | Anesthesiology Consultation ---
Date of Service November 16, 2018 Assessment & Plan (1) Encounter for pre-operative examination: PCP: 11/16/18: "Patient is cleared for lumbar spine fusion..without any cardiopulm risks." Chart Review Chart Review: Pending: Refer to Additional Notes / Consult section (pending preop testing (labs, EKG, CXR)) and Patient seen in Pre Admission Testing Teaching & Discussion Pre-Anesthesia Teaching/Discussion Notes: Instructed NPO after midnight before surgery,except medications with 15 cc of water. Medication instructions provided according to the PAT guidelines. History Surgery Operation Date: 12/02/18 07:45 Proposed Procedures p L3-L4 Decompression and Fusion, L4-L5 Hardware Removal, Spinal Cord Monitoring - Micah Coates, Height/Weight Height: 5 ft 4 in Weight: 110.3 kg Allergies Allergy/AdvReac Type Severity Reaction Status Date / Time meperidine Allergy Intermediate headache, Verified 11/16/18 13:43 SOB, "dying feeling" adhesive Allergy Mild Tape- skin Verified 11/16/18 13:43 soreness/rash (no issues with paper tape) NSAIDS (Non-Steroidal AdvReac Unknown Advised to Verified 11/16/18 13:43 Anti-Inflamma avoid CKD Medications Home Medications Medication Instructions Recorded Confirmed Last Taken acetaminophen 1,000 mg PO Q6H PRN 11/11/18 11/11/18 Unknown cyanocobalamin (vitamin B-12) 1,000 mcg PO QAM 11/11/18 11/11/18 Unknown [Vitamin B-12] ergocalciferol (vitamin D2) 50,000 unit PO WK 11/11/18 11/11/18 Unknown [Vitamin D2] furosemide [Lasix] 40 mg PO QAM 11/11/18 11/11/18 Unknown gabapentin 300 mg PO TID 11/11/18 11/11/18 Unknown hydrocodone-acetaminophen 1 tab PO Q6 PRN 11/11/18 11/11/18 Unknown hydroxyzine HCl 10 mg PO BID 11/11/18 11/11/18 Unknown hydroxyzine HCl 50 mg PO HS 11/11/18 11/11/18 Unknown lisinopril 10 mg PO QAM 11/11/18 11/11/18 Unknown lorazepam 0.5 mg PO Q6 PRN 11/11/18 11/11/18 Unknown lorazepam 1 mg PO DAILY PRN 11/11/18 11/11/18 Unknown metoprolol succinate [Toprol XL] 50 mg PO QAM 11/11/18 11/11/18 Unknown pantoprazole [Protonix] 40 mg PO QAM 11/11/18 11/11/18 Unknown ranitidine HCl [Zantac] 150 mg PO HS 11/11/18 11/11/18 Unknown rosuvastatin 20 mg PO QAM 11/11/18 11/11/18 Unknown trazodone 200 mg PO HS 11/11/18 11/11/18 Unknown Past Medical History Medical History Anxiety Arthritis Chronic back pain lower back Chronic kidney disease PCP monitoring Depression Diverticulitis hx (2 years ago) GERD (gastroesophageal reflux disease) controlled Hx of skin cancer, basal cell Hyperlipidemia Hypertension Morbid obesity Osteoarthritis Sleep apnea CPAP Exercise / Class Metabolic Activity III < 4 Walking/Shop/Light housework Past Family History Family History Sister Family history of diabetes mellitus Grandmother (Paternal) Family history of diabetes mellitus Father FHx: lung cancer Past Surgical History Surgical History History of basal cell carcinoma excision History of carpal tunnel release of both wrists History of cholecystectomy History of lumbar surgery History of total knee replacement left knee History of tubal ligation Hx of decompression of ulnar nerve right elbow Past Anesthesia History No Hx of Anesthesia Complications and No Family Hx of Anesthesia Complications History of PONV No Hx of PONV and Hx of Motion Sickness Social History Smoking Status: Never smoker Do You Dip or Chew Tobacco: No Hx Alcohol Use: No Hx Substance Use: No Review of Systems Reflux controlled. Patient denies chest pain, shortness of breath, cough, wheezing, palpitations. Physical Exam Vital Signs VITALS BP 125/81 P 59 TEMP 98.2 SP02 93%RA RESP 20 PHYSICAL Full neck and c-spine range of motion. Full TMJ range of motion. TMD 3.5 finger breaths Mallampati Score 2 Dentition: upper/lower dentures; edentulous Lungs: clear throughout to auscultation Cardiac: regular rate and rhythm, no murmurs noted Spine: normal Carotid arteries: negative bruit Extremities: no edema
--- NOTE | 2018-11-16 14:42 | XRay Report ---
XR chest Pre-admission PA/Lat CLINICAL HISTORY: Preoperative chest COMPARISON STUDY: 08/02/2016 FINDINGS: The heart is the upper limits of normal in size. There is no failure. There is no focal pul monary consolidation. There are no pleural effusions.[ IMPRESSION: No active disease in the chest. Electronically signed by: Brayden Moss M.D. 11/16/2018 2:40 PM
[2018-11-16 14:53] LABS: Appearance Urine Clear (Clear); Bilirubin Urine Negative (Negative); Blood Urine Negative (Negative); Color Urine Yellow; Glucose Urine UA Negative (Negative); Ketones Urine Negative (Negative); Leukocyte Esterase Urine Negative (Negative); Nitrite Urine Negative (Negative); Protein Urine Negative (Negative); Specific Gravity Urine 1.017 (1.000-1.030); Urobilinogen Urine Negative (Negative); pH Urine 7.5 (4.5-7.5)
[2018-11-16 14:56] LABS: Basophils # (auto) 0.02 K/uL (0-0.2); Basophils % (auto) 0.5 %; Eosinophils # (auto) 0.06 K/uL (0-0.5); Eosinophils % (auto) 1.4 %; Hematocrit (blood only) 35.9 % (37-47); Immature Granulocytes # (auto) 0.01 K/uL (0.00-0.02); Immature Granulocytes % (auto) 0.2 %; Lymphocytes # (auto) 1.56 K/uL (1.2-3.4); Lymphocytes % (auto) 36.8 %; Mean Corpuscular Hemoglobin 30.3 pg (25-34); Mean Corpuscular Hgb Conc 33.4 g/dL (32-36); Mean Corpuscular Volume 90.7 fL (80-100); Mean Platelet Volume 9.2 fL (7.4-10.4); Monocytes # (auto) 0.47 K/uL (0.11-0.59); Monocytes % (auto) 11.1 %; Neutrophils # (auto) 2.12 K/uL (1.4-6.5); Platelet Count 134 K/uL (130-400); RDW Coefficient of Variation 13.7 % (11.5-14.5); RDW Standard Deviation 45.4 fL (36.4-46.3); Red Blood Count 3.96 M/uL (4.2-5.4); White Blood Count 4.24 K/uL (4.8-10.8)
[2018-11-16 15:04] LABS: Partial Thromboplastin Time 26.6 Seconds (21.0-31.0); Prothrombin Time 10.3 Seconds (9.0-12.0)
[2018-11-16 16:17] LABS: BUN Creatinine Ratio 15.7 (10-20); Calcium 9.2 mg/dl (8.5-10.1); Est GFR (Non-African American) 52.6; Potassium 4.7 mmol/L (3.5-5.1)
[~2018-12-02 10:14] MED LIST changes: +ACETAMINOPHEN 500 MG TAB PO SCH; +CEFAZOLIN 2000MG 2,000 MG/15 ML SYR IV SCH; -CHOL100010; +CeleBREX 200 MG CAP PO SCH; -DSY100 PO; -FAMO40TA6 PO; -FURO40TA3 PO; +GABAPENTIN 300 MG CAP PO SCH; -HYDR-3785 PO; -HYDR-5688 PO; +HYDROmorphone INJ 2 MG/ML SYR/VIAL ONE; -LISI-461 PO; +LR 15ML/HR IV SCH; -MELA1TAB5 PO; -METO25TA3 PO; +MIDAZOLAM HCL 1 MG/ML 2ML VIAL ONE; -NRN600 PO; -PANT40TA PO; -RXC5 PO; +fentaNYL citrate 100 MCG/2 ML VIAL ONE
--- NOTE | 2018-12-02 10:47 | History & Physical Bridge Note ---
Date of Service December 02, 2018 History & Physical Bridge Note I have examined the patient, reviewed the History & Physical and in the interval since the performance of the History & Physical I have noted the following changes of clinical significance: no changes noted
--- NOTE | 2018-12-02 10:49 | History & Physical Report ---
Date of Service December 02, 2018 Assessment & Plan (1) Lumbar stenosis with neurogenic claudication: Decompression and fusion L3-4 hardware removal L4-5 Present on Admission?: Yes History of Present Illness Chief Complaint: Back and leg pain Primary Care Provider: Ricky Fontanez M.D. This is a 73-year-old female well-known to the presents with chronic persistent back and leg pain. After failing extensive course of nonoperative care is here for surgical intervention. Allergies Allergy/AdvReac Type Severity Reaction Status Date / Time meperidine Allergy Intermediate headache, Verified 12/02/18 10:45 SOB, "dying feeling" adhesive Allergy Mild Tape- skin Verified 12/02/18 10:45 soreness/rash (no issues with paper tape) NSAIDS (Non-Steroidal AdvReac Unknown Advised to Verified 12/02/18 10:45 Anti-Inflamma avoid CKD Home Medications Home Medications Medication Instructions Recorded Confirmed Type acetaminophen 1,000 mg PO Q6H PRN 11/11/18 11/11/18 History cyanocobalamin (vitamin B-12) 1,000 mcg PO QAM 11/11/18 11/11/18 History [Vitamin B-12] ergocalciferol (vitamin D2) 50,000 unit PO WK 11/11/18 11/11/18 History [Vitamin D2] furosemide [Lasix] 40 mg PO QAM 11/11/18 11/11/18 History gabapentin 300 mg PO TID 11/11/18 11/11/18 History hydrocodone-acetaminophen 1 tab PO Q6 PRN 11/11/18 11/11/18 History hydroxyzine HCl 10 mg PO BID 11/11/18 11/11/18 History hydroxyzine HCl 50 mg PO HS 11/11/18 11/11/18 History lisinopril 10 mg PO QAM 11/11/18 11/11/18 History lorazepam 0.5 mg PO Q6 PRN 11/11/18 11/11/18 History lorazepam 1 mg PO DAILY PRN 11/11/18 11/11/18 History metoprolol succinate [Toprol XL] 50 mg PO QAM 11/11/18 11/11/18 History pantoprazole [Protonix] 40 mg PO QAM 11/11/18 11/11/18 History ranitidine HCl [Zantac] 150 mg PO HS 11/11/18 11/11/18 History rosuvastatin 20 mg PO QAM 11/11/18 11/11/18 History trazodone 200 mg PO HS 11/11/18 11/11/18 History Past Med/Surg History Medical History Anxiety Arthritis Chronic back pain lower back Chronic kidney disease PCP monitoring Depression Diverticulitis hx (2 years ago) GERD (gastroesophageal reflux disease) controlled Hx of skin cancer, basal cell Hyperlipidemia Hypertension Morbid obesity Osteoarthritis Sleep apnea CPAP Surgical History History of basal cell carcinoma excision History of carpal tunnel release of both wrists History of cholecystectomy History of lumbar surgery History of total knee replacement left knee History of tubal ligation Hx of decompression of ulnar nerve right elbow Family History Sister Family history of diabetes mellitus Grandmother (Paternal) Family history of diabetes mellitus Father FHx: lung cancer Social History Preferred Language: Indian Communication Ability: Effective Beliefs That Will Affect Care: None Current Living Situation: Spouse Feels Safe at Home: Yes Smoking Status: Never smoker Do You Dip or Chew Tobacco: No ; Second Hand Exposure: Yes ("SOMETIMES" COUPLE TIMES PER WEEK) ; Hx Alcohol Use: No Hx Substance Use: No Physical Exam Physical Exam: Patient is alert and oriented neurologically intact.
[2018-12-02] MEDS ORDERED: ePHEDrine sulfate 50 MG/ML AMP IV PRN (11:07)
[2018-12-02] MEDS ORDERED: HYDROmorphone INJ 1 MG/ML SYRINGE IV PRN (11:07)
[2018-12-02] MEDS ORDERED: fentaNYL citrate 100 MCG/2 ML VIAL IV PRN (11:07)
[2018-12-02] MEDS ORDERED: ATROPINE SULFATE 0.1 MG/ML 10ML SYR IV PRN (11:07)
[2018-12-02] MEDS ORDERED: ONDANSETRON INJ 2 MG/ML 2 ML VIAL IV PRN ×2 (11:07→15:07)
[2018-12-02] MEDS ORDERED: BUPIVACAINE/EPINEPHRINE 0.5% MPF 1:200,000 30 ML VIAL ONE (11:09)
[2018-12-02] MEDS ORDERED: BACITRACIN INJ 50,000 UNIT VIAL ONE (11:09)
[2018-12-02] MEDS ORDERED: fentaNYL citrate 100 MCG/2 ML VIAL ONE ×4 (11:54→13:07)
[2018-12-02] MEDS ORDERED: FLOSEAL HEMOSTATIC MATRIX 10ML TOP ONE (12:08)
[2018-12-02] MEDS ORDERED: HYDROmorphone INJ 2 MG/ML SYR/VIAL ONE (13:07)
[2018-12-02] MEDS ORDERED: PHENYLEPHRINE 100MCG/ML 5ML SYR ONE (13:10)
[2018-12-02] MEDS ORDERED: ePHEDrine sulfate 50 MG/ML SYR ONE (13:10)
[2018-12-02] MEDS ORDERED: DEXAMETHASONE SOD INJ 4 MG/ML VIAL ONE (13:10)
[2018-12-02] MEDS ORDERED: LIDOCAINE HCL 2% 2 ML VIAL/AMP(20MG/ML) INFIL ONE (13:10)
[2018-12-02] MEDS ORDERED: ONDANSETRON INJ 2 MG/ML 2 ML VIAL ONE (13:10)
[2018-12-02] MEDS ORDERED: GLYCOPYRROLATE 0.2 MG/ML VIAL ONE (13:10)
[2018-12-02] MEDS ORDERED: NEOSTIGMINE METHYLSULFATE 1 MG/ML 10ML VIAL ONE (13:10)
[2018-12-02] MEDS ORDERED: PROPOFOL IV EMULSION 10 MG/ML 20 ML VIAL IV ONE (13:10)
[2018-12-02] MEDS ORDERED: ROCURONIUM BROMIDE 10 MG/ML 5 ML VIAL ONE (13:10)
--- NOTE | 2018-12-02 13:29 | Operative Report ---
Post Operative Report Pre & Post Diagnosis Operation Date: 12/02/18 11:45 Pre-Op Diagnosis: LUMBAR SPINAL STENOSIS W/NEUROGENIC CLAUDICATION Post-Op Diagnosis: LUMBAR SPINAL STENOSIS W/NEUROGENIC CLAUDICATION Procedure Operation Date: 12/02/18 11:45 Actual Procedures #1 removal of posterior instrumentation L4-5 per #2 expiration of fusion L4-5 per #3 lumbar decompression with bilateral medial facetectomies foraminotomies L2-3 L3-4. #4 posterior spinal fusion L3-4 per #5 placement posterior instrumentation L3-4 L4-5 per #6 interbody fusion L3-4. #7 placement of peek cage 13 x 22 mm at L3-4. #8 placement of local autograft in the posterior lateral gutters per #9 placement infuse collagen sponge bone mass graft in the posterior lateral gutters and ostial amp and interbody space. Surgeon Micah Coates, Shearing Machine Tender Mayda Jorgensen Estimated Blood Loss 425 Findings See Below Patient is 5 foot 4 inches tall weighing over 110 kg BMI in excess of 41. Patient's body habitus created significant technical difficulty throughout the procedure requiring her deepest retractors and longus instruments in order to perform. This added at least 50% increase in operative time. Specimens None Indications This is a 73-year-old female well-known to the presents with above-mentioned diagnosis after failing extensive course of nonoperative care like to undergo the above-mentioned procedure. Description of Procedure Patient was met with identified and informed consent obtained. Patient was then taken to the operative suite underwent intubation placed in a prone position on the Fernando table on top of the Juan frame. All bony prominences well-padded eyes inspected to ensure no external pressure placed upon the peer at this point the lumbar spine was prepped and draped in the normal sterile fashion. Sharp dissection with the assistance of Bovie cautery was performed down to and exposing the lamina and transverse processes of L3 and instrumentation at L4-L5 bilaterally. Proceed remove the hardware bilaterally exploring the fusion mass noting it to be intact. Then performed a complete laminectomy of L3 partial laminectomy of L2 including bilateral medial facetectomies and foraminotomies addressing severe stenosis. Pedicle screws were then placed in L3-L4-L5 bi laterally with assistance of fluoroscopy and the probably size delmi placed. By way of a transforaminal approach and left complete discectomy was performed endplates curetted to subcortical bleeding bone and a 13 x 22 mm peek cage filled with ostium bone graft tapped in position. The rods were then compressed locked in final position bilaterally. The transverse processes of L3-L4 burred to subcortical being bone and infuse collagen sponge combined with mass graft placed in the posterior lateral gutters. 15 round RONNY drain inserted. The incision was then closed with 1 Vicryl in the fascia 2-0 Vicryl subcutaneous and 4-0 Monocryl for final skin closure. Steri-Strip sterile dressings placed. Patient will continue PACU stable condition. Please note spinal cord monitoring was utilized that the procedure no changes noted. I attest to the content of the Intraoperative Record and any orders documented therein. Any exceptions are noted below.
--- NOTE | 2018-12-02 13:56 | Fluoroscopy Report ---
FL lumbar spine 2-3V HISTORY: 73 years-old Female L3-L4 DECOMPRESSION AND FUSION chronic low back pain COMPARISON: CT lumbar myelogram 10/07/2018 TECHNIQUE: 2 spot fluoroscopic images of the lumbar spine were obtained utilizing 7.6 seconds fluoros copy time FINDINGS: Laminectomy changes with posterior interbody delmi and screw fusion and discectomy noted at L3-L5. Alig nment appears satisfactory. Mild multilevel spondylitic spurring. IMPRESSION: Fluoroscopic assistance as above. Please see operative report for further details. The above report was generated using voice recognition software. It may contain grammatical, syntax o r spelling errors. Electronically signed by: Mayur Das M.D. 12/02/2018 1:55 PM
[2018-12-02] MEDS ORDERED: ALBUMIN HUMAN 5% 12.5 GM/250 ML VIAL IV ONE (13:58)
[2018-12-02] MEDS ORDERED: LARYING-O-JET KIT (LTA) ONE (14:18)
--- NOTE | 2018-12-02 14:32 | Anesthesiology Progress Note ---
Date of Service December 02, 2018 Anesthesia Post Procedure Vital Signs Vital Signs: Temp Pulse Pulse Resp BP Pulse Ox 12/02/18 14:29 36.5 C 73 16 142/80 H 100 12/02/18 14:20 72 16 145/81 H 99 12/02/18 14:10 78 10 L 150/87 H 100 12/02/18 14:00 81 11 L 143/80 H 97 12/02/18 13:53 36.7 C 97 H 14 132/78 96 12/02/18 10:52 36.4 C L 64 20 125/81 97 Pain Intensity Bilateral Lower Back: Pain Intensity: 10 Transfer of Care Handoff Completed per policy Notes Mental Status: alert / awake / arousable and participated in evaluation Patient Amnestic to Procedure: Yes Nausea / Vomiting: adequately controlled Pain: adequately controlled Airway Patency, RR, SpO2: stable & adequate BP & HR: stable & adequate Hydration State: stable & adequate Anesthetic Complications: no major complications apparent and Pt Satisfied with anesthetic care
[2018-12-02] MEDS ORDERED: DO NOT ADMINISTER FLU VACCINE PRN (15:07)
[2018-12-02] MEDS ORDERED: LORazepam 1 MG TAB PO PRN (15:07)
[2018-12-02] MEDS ORDERED: ACETAMINOPHEN 1,000 MG/100 ML VIAL IV PRN (15:07)
[2018-12-02] MEDS ORDERED: bisacodyL 10 MG SUPP PR PRN (15:07)
[2018-12-02] MEDS ORDERED: ACETAMINOPHEN 500 MG TAB PO PRN ×2 (15:07)
[2018-12-02] MEDS ORDERED: LORazepam 0.5 MG TAB PO PRN (15:07)
[2018-12-02] MEDS ORDERED: PROMETHAZINE HCL 12.5 MG in SODIUM CHLORIDE 0.9% 50 ML IV PRN (15:07)
[2018-12-02] MEDS ORDERED: ONDANSETRON 4 MG TAB PO PRN (15:07)
[2018-12-02] MEDS ORDERED: MAGNESIUM HYDROXIDE SUSP 30 ML UDC PO PRN (15:07)
[2018-12-02] MEDS ORDERED: FAMOTIDINE 20 MG TAB PO PRN (15:07)
[2018-12-02] MEDS ORDERED: NALOXONE HCL 0.4 MG/1 ML VIAL/CARP IV PRN (15:07)
[2018-12-02] MEDS ORDERED: SOD PHOSPHATE/SOD BIPHOSPHATE ENEMA 132 ML BTL PR PRN (15:07)
[2018-12-02] MEDS ORDERED: HYDROmorphone INJ 0.5 MG/0.5 ML SYR IV PRN (15:07)
[2018-12-02] MEDS ORDERED: LORazepam 0.5 MG/1 ML VIAL IV PRN (15:07)
[2018-12-02] MEDS ORDERED: METOCLOPRAMIDE HCL INJ 5 MG/ML 2 ML VIAL IV PRN (15:07)
[2018-12-02] MEDS ORDERED: DO NOT ADMINISTER PNEUMOCOCCAL VACCINE PRN (15:07)
[2018-12-02] MEDS ORDERED: TRAMADOL HCL 50 MG TABLET PO PRN (15:07)
[2018-12-02] MEDS ORDERED: ALUMINUM/MAGNESIUM SUSP 30 ML UDC PO PRN (15:07)
[2018-12-02] MEDS ORDERED: HYDROCODONE/ACETAMOPHEN 5/325MG TAB PO PRN (15:07)
--- NOTE | 2018-12-02 16:16 | Consultation ---
Date of Consultation December 02, 2018 Assessment & Plan (1) Status post lumbar surgery: Post op day# 0 S/P Revision and lumbar decompression and fusion by Dr Coates EBL# 425ml -pain management per ortho -wound management per ortho -PT/OT as appropriate -DVT prophylaxis per ortho -incentive spirometry -monitor H&H for acute blood loss anemia (2) Hypertension: Stable -Continue metoprolol, lisinopril -can consider resume Lasix in AM (3) CKD (chronic kidney disease), stage III: Cr: 1.0 on pre-op labs 11/16/18 -Monitor renal functions -Avoid nephrotoxic agents when possible (4) Anxiety: Generalized Anxiety And Depression as per medical records -continue home medications of trazodone, hydroxyzine, prn ativan (5) GERD (gastroesophageal reflux disease): -Continue PPI, H2 terrence Vitamin D Deficiency -continue Vitamin D supplements q weekly, next dose is 12/06/18 Vitamin B12 Deficiency -continue vitamin B12 supplements (6) Hyperlipidemia: -Continue statin (7) Sleep apnea: -CPAP HS (8) Morbid obesity: BMI: 41 -lifestyle modifications recommended DVT Prophylaxis -SCDs Follows with Dr Huseyin Storey for routine care Pt was seen and care coordinated with Dr Nichole. See addendum Pt will be followed by Dr Butler starting 12/03/18. Thank you for this consultation. We will follow the patient with you during their hospital stay. You can reach a [facility] via pager @ [phone]. Supervising Physician Co-Signing Physician Notes I, Dr. Gabriel Nichole, have seen and examined the patient with physician assistant director of public works and On physical exam: General: on nasal cannula, no acute distress Heart: regular rate Lung: on nasal cannula oxygen, lungs clear to auscultation Abdomen: soft, nontender, positive bowel sounds, truncal obesity Extremities: Legs in SCDs Neuro/Psych: awake and alert, verbal, follows directions And I would like to comment in addition to history/assessment/plan as documented by physician assistant director of public works that this is a 73 year old female patient who: Is being by hospitalist medicine as consultation as patient is under general surgery service who on 12/02/18 had Revision and lumbar decompression and fusion surgery for diagnosis of LUMBAR SPINAL STENOSIS W/NEUROGENIC CLAUDICATION by Dr. Coates (Actual Procedures #1 removal of posterior instrumentation L4-5 per #2 expiration of fusion L4-5 per #3 lumbar decompression with bilateral medial facetectomies foraminotomies L2-3 L3-4. #4 posterior spinal fusion L3-4 per #5 placement posterior ins trumentation L3-4 L4-5 per #6 interbody fusion L3-4. #7 placement of peek cage 13 x 22 mm at L3-4. #8 placement of local autograft in the posterior lateral gutters per #9 placement infuse collagen sponge bone mass graft in the posterior lateral gutters and ostial amp and interbody space.) -pain control, bowel regimen, monitor CBC Obesity with BMI 41 -Surgical course complicated by obesity as per surgery note that Patient's body habitus created significant technical difficulty throughout the procedure requiring her deepest retractors and longus instruments in order to perform. This added at least 50% increase in operative time. -PT/OT Chronic Kidney Disease stage 3 -monitor renal function Hypertension -resume home dose Lisinopril -continue home dose metopolol -can consider resume Lasix in AM Obstructive Sleep apnea on CPAP -CPAP at night Generalized Anxiety And Depression as per medical records -continue home medications of trazodone, hydroxyzine, prn ativan Vitamin D Deficiency -continue Vitamin D supplements q weekly, next dose is 12/06/18 Vitamin B12 Deficiency -continue vitamin B12 supplements Agree with other assessment and plan as documented by physician assistant director of public works Starting on 12/03/18, patient will be followed by my colleague as hospitalist medicine physician child welfare consultant, Dr. Butler History of Present Illness Reason for Consultation: Post op medical management Attending Physician: Micah Coates DO History of Present Illness Pt is 73 y/o F with PMH HTN, HLD, CKD III, anxiety, depression, GERD, MITCH, obesity seen in consultation for post op medical management s/p revision and lumbar decompression and fusion today by Dr Coates. Post op reports back pain. Denies leg paresthesias or leg pain. Denies nausea or vomiting. Has Fernando cath in place. Last BM yesterday. Denies fever/chills, diaphoresis, WHITE, dizziness, syncope, vision changes, neck pain, CP, SOB, orthopnea, palpitations, cough, sore throat, choking, otalgia, rhinorrhea, abdominal pain, extremity edema, rashes, urinary symptoms. Allergies Allergy/AdvReac Type Severity Reaction Status Date / Time meperidine Allergy Intermediate headache, Verified 12/02/18 10:45 SOB, "dying feeling" adhesive Allergy Mild Tape- skin Verified 12/02/18 10:45 soreness/rash (no issues with paper tape) NSAIDS (Non-Steroidal AdvReac Unknown Advised to Verified 12/02/18 10:45 Anti-Inflamma avoid CKD Home Medications Home Medications Medication Instructions Recorded Confirmed Type acetaminophen 1,000 mg PO Q6H PRN 11/11/18 12/02/18 History cyanocobalamin (vitamin B-12) 1,000 mcg PO QAM 11/11/18 12/02/18 History [Vitamin B-12] ergocalciferol (vitamin D2) 50,000 unit PO WK 11/11/18 12/02/18 History [Vitamin D2] furosemide [Lasix] 40 mg PO QAM 11/11/18 12/02/18 History gabapentin 300 mg PO TID 11/11/18 12/02/18 History hydrocodone-acetaminophen 1 tab PO Q6 PRN 11/11/18 12/02/18 History hydroxyzine HCl 10 mg PO BID 11/11/18 12/02/18 History hydroxyzine HCl 50 mg PO HS 11/11/18 12/02/18 History lisinopril 10 mg PO QAM 11/11/18 12/02/18 History lorazepam 0.5 mg PO Q6 PRN 11/11/18 12/02/18 History lorazepam 1 mg PO DAILY PRN 11/11/18 12/02/18 History metoprolol succinate [Toprol XL] 50 mg PO QAM 11/11/18 12/02/18 History pantoprazole [Protonix] 40 mg PO QAM 11/11/18 12/02/18 History ranitidine HCl [Zantac] 150 mg PO BID 11/11/18 12/02/18 History rosuvastatin 20 mg PO QAM 11/11/18 12/02/18 History trazodone 200 mg PO HS 11/11/18 12/02/18 History Patient History Medical History Chronic back pain (Chronic) lower back Osteoarthritis (Chronic) Diverticulitis (Resolved) hx (2 years ago) Sleep apnea (Chronic) CPAP Hyperlipidemia (Chronic) Hypertension (Chronic) Anxiety (Chronic) Depression (Chronic) Chronic kidney disease (Chronic) PCP monitoring Hx of skin cancer, basal cell (Chronic) GERD (gastroesophageal reflux disease) (Chronic) controlled Arthritis (Chronic) Morbid obesity (Chronic) Surgical History History of lumbar surgery (Chronic) Hx of decompression of ulnar nerve (Chronic) right elbow History of total knee replacement (Chronic) left knee History of cholecystectomy (Chronic) History of tubal ligation (Chronic) History of carpal tunnel release of both wrists (Chronic) History of basal cell carcinoma excision (Chronic) Family History Sister Family history of diabetes mellitus Grandmother (Paternal) Family history of diabetes mellitus Father FHx: lung cancer Social History Preferred Language: Yakut Communication Ability: Effective Beliefs That Will Affect Care: None Current Living Situation: Spouse Feels Safe at Home: Yes Smoking Status: Never smoker Do You Dip or Chew Tobacco: No ; Second Hand Exposure: Yes ("SOMETIMES" COUPLE TIMES PER WEEK) ; Hx Alcohol Use: No Hx Substance Use: No Review of Systems Review of Systems: All systems reviewed & are unremarkable except as noted in HPI & below Physical Exam Physical Exam: General: no distress, obese Head: normocephalic, atraumatic Eyes: PERRL, EOM's intact, conjunctiva non-injected, anicteric ENT: normal inspection external ears, nose, mucous membranes moist Neck: supple, trachea midline, non-tender Lungs: clear, no respiratory distress, no wheezing/rhonchi/rales CV: RRR, no murmur, no pretibial edema Abd: normal BS, soft, non-tender Back: RONNY drain in place Ext: no cyanosis, no calf tenderness; distal pulses intact, bilateral pedal pushes and pulls intact Neuro: A&O x 3, no focal deficits noted, normal affect Skin: warm, dry Results & Data Vital Signs (Past 12 Hours) Vital Signs Temp Pulse Pulse Resp BP Pulse Ox 12/02/18 15:43 36.2 C L 61 16 158/88 H 100 12/02/18 15:15 36.4 C L 63 16 150/88 H 96 12/02/18 14:45 36.4 C L 66 15 150/91 H 97 12/02/18 14:29 36.5 C 73 16 142/80 H 100 12/02/18 14:20 72 16 145/81 H 99 12/02/18 14:10 78 10 L 150/87 H 100 12/02/18 14:00 81 11 L 143/80 H 97 12/02/18 13:53 36.7 C 97 H 14 132/78 96 12/02/18 10:52 36.4 C L 64 20 125/81 97
[2018-12-02] MEDS: OXYCODONE HCL IR 5 MG TAB (IMMEDIATE RELEASE) PO PRN ×2 (16:19→20:42)
[2018-12-02] MEDS: SODIUM CHLORIDE 0.9% 1000ML 1,000 ML IV SCH (18:13)
[2018-12-02] MEDS: CEFAZOLIN 2000MG 2,000 MG/15 ML SYR IV SCH (18:13)
[2018-12-02] MEDS: GABAPENTIN 300 MG CAP PO SCH ×2 (18:13→20:43)
[2018-12-02] MEDS: TRAZODONE HCL 100 MG TAB PO SCH (20:43)
[2018-12-02] MEDS: DOCUSATE SODIUM/SENNA 50/8.6MG TAB PO SCH (20:44)
[2018-12-02] MEDS ORDERED: hydrOXYzine HCl 10 MG TAB PO SCH (21:00)
[2018-12-03] MEDS: OXYCODONE HCL IR 5 MG TAB (IMMEDIATE RELEASE) PO PRN ×5 (00:37→18:56)
[2018-12-03] MEDS: SODIUM CHLORIDE 0.9% 1000ML 1,000 ML IV SCH ×2 (01:17→05:25)
[2018-12-03] MEDS: CEFAZOLIN 2000MG 2,000 MG/15 ML SYR IV SCH (03:47)
[2018-12-03] MEDS: POLYETHYLENE (MIRALAX) 17 GM PACK PO SCH ×3 (05:49→18:56)
[2018-12-03 05:57] LABS: Hematocrit (blood only) 28.2 % (37-47); Hemoglobin 9.5 g/dL (12.0-16.0); Immature Granulocytes # (auto) 0.01 K/uL (0.00-0.02); Immature Granulocytes % (auto) 0.1 %; Lymphocytes # (auto) 0.64 K/uL (1.2-3.4); Lymphocytes % (auto) 9.5 %; Mean Corpuscular Hemoglobin 30.4 pg (25-34); Mean Corpuscular Hgb Conc 33.7 g/dL (32-36); Mean Corpuscular Volume 90.1 fL (80-100); Mean Platelet Volume 8.9 fL (7.4-10.4); Monocytes # (auto) 0.56 K/uL (0.11-0.59); Monocytes % (auto) 8.3 %; Neutrophils # (auto) 5.51 K/uL (1.4-6.5); Neutrophils % (auto) 82.1 %; Platelet Count 116 K/uL (130-400); RDW Coefficient of Variation 13.7 % (11.5-14.5); RDW Standard Deviation 45.3 fL (36.4-46.3); Red Blood Count 3.13 M/uL (4.2-5.4); White Blood Count 6.72 K/uL (4.8-10.8)
[2018-12-03 06:25] LABS: BUN Creatinine Ratio 14.7 (10-20); Calcium 8.5 mg/dl (8.5-10.1); Creatinine Clr Calc Pharmacy 64.1 ml/min; Est GFR (African American) 68.9; Est GFR (Non-African American) 59.4
[2018-12-03] MEDS: hydrOXYzine HCl 10 MG TAB PO SCH ×2 (07:28→14:15)
[2018-12-03] MEDS: METOPROLOL SUCC 50MG EXT REL TAB PO SCH (07:29)
[2018-12-03] MEDS: GABAPENTIN 300 MG CAP PO SCH ×3 (07:29→20:33)
[2018-12-03] MEDS: CYANOCOBALAMIN 500 MCG TABLET (VITAMIN B-12) PO SCH (07:29)
[2018-12-03] MEDS: PANTOprazole 40 MG TAB PO SCH (07:29)
[2018-12-03] MEDS: FUROSEMIDE 40 MG TAB PO SCH (07:30)
[2018-12-03] MEDS: lisinopriL 10 MG TAB PO SCH (07:30)
[2018-12-03] MEDS: ROSUVASTATIN CALCIUM 20 MG TAB PO SCH (07:31)
--- NOTE | 2018-12-03 08:44 | Anesthesiology Progress Note ---
Date of Service December 03, 2018 Anesthesia Post Procedure Vital Signs Vital Signs: Temp Pulse Pulse Resp BP Pulse Ox 12/03/18 07:52 36.8 C 80 18 121/51 L 95 12/03/18 03:10 36.7 C 79 16 122/69 91 12/02/18 23:30 36.6 C 85 16 117/76 92 12/02/18 17:45 36.4 C L 88 16 138/82 96 12/02/18 16:51 36.4 C L 82 16 149/81 H 97 12/02/18 15:43 36.2 C L 61 16 158/88 H 100 12/02/18 15:15 36.4 C L 63 16 150/88 H 96 12/02/18 14:45 36.4 C L 66 15 150/91 H 97 12/02/18 14:29 36.5 C 73 16 142/80 H 100 12/02/18 14:20 72 16 145/81 H 99 12/02/18 14:10 78 10 L 150/87 H 100 12/02/18 14:00 81 11 L 143/80 H 97 12/02/18 13:53 36.7 C 97 H 14 132/78 96 12/02/18 10:52 36.4 C L 64 20 125/81 97 Pain Intensity Bilateral Lower Back: Pain Intensity: 10 Notes Mental Status: alert / awake / arousable and participated in evaluation Patient Amnestic to Procedure: Yes Nausea / Vomiting: adequately controlled Pain: adequately controlled Airway Patency, RR, SpO2: stable & adequate BP & HR: stable & adequate Hydration State: stable & adequate Anesthetic Complications: no major complications apparent and Pt Satisfied with anesthetic care
[2018-12-03] MEDS ORDERED: FUROSEMIDE 40 MG TAB PO SCH (09:00)
--- NOTE | 2018-12-03 09:54 | Hospitalist Progress Note ---
Date of Service December 03, 2018 Assessment & Plan (1) Status post lumbar surgery: Post op day# 1 S/P Revision and lumbar decompression and fusion by Dr Coates EBL# 425ml, total RONNY drain output: 275ml -pain management per ortho -wound management per ortho -PT/OT as appropriate -DVT prophylaxis per ortho -incentive spirometry -Hgb: 9.5 from 12 pre-op (2) Hypertension: Stable -Continue metoprolol, lisinopril, lasix (3) CKD (chronic kidney disease), stage III: Cr: 1.0 on pre-op labs 11/16/18 Cr: 0.95 today -Monitor renal functions -Avoid nephrotoxic agents when possible (4) Anxiety: Generalized Anxiety And Depression as per medical records -continue home medications of trazodone, hydroxyzine, prn ativan (5) GERD (gastroesophageal reflux disease): -Continue PPI, H2 terrence (6) Hyperlipidemia: -Continue statin (7) Sleep apnea: -CPAP HS (8) Morbid obesity: BMI: 41 -lifestyle modifications recommended DVT Prophylaxis -SCDs Pt was seen and care coordinated with Dr Butler. See addendum Supervising Physician Co-Signing Physician Notes Patient is seen and examined at bedside. Back pain at surgical site is controlled. Denies any numbness or tingling in lower extremities. Also denies any chest pain, shortness of breath, dizziness, nausea. No flatus, bowel movement yet. On exam patient is obese, no apparent distress, normocephalic atraumatic, lungs are clear to auscultation, S1-S2, no murmur, abdomen soft nontender, back--surgical site in dressing,+ RONNY drain, trace pedal edema, grossly no focal neurological deficits. S/P: Lumbar decompression fusion by Dr. Coates. Activity, DVT prophylaxis, wound care as per primary team. Continue bowel regimen for constipation. Monit or for blood loss anemia. HTN: Stable. Continue current medications. I personally reviewed the record. Patient is interviewed and examined at bedside. Patient's care is coordinated with Delia Andrews PA-C. Please refer to the documentation above for details of patient's presentation and for discussion of other issues. Subjective Pt is seen and examined. Sitting up in bed. Reports back pain today, feels moderately controlled with pain medications. Denies extremity paresthesias. No BM today. Still with Fernando in place. Denies fever/chills, diaphoresis, N/V, WHITE, dizziness, syncope, vision changes, neck pain, CP, SOB, orthopnea, palpitations, cough, choking, abdominal pain, extremity edema, rashes. Review of Systems Review of Systems: All systems reviewed & are unremarkable except as noted in HPI & below Physical Exam Physical Exam: General: no acute distress, obese Head: normocephalic, atraumatic Eyes: conjunctiva non-injected, anicteric ENT: normal inspection external ears, nose, mucous membranes moist Neck: supple, trachea midline Lungs: clear, no respiratory distress, no wheezing/rhonchi/rales CV: RRR, no murmur, no pretibial edema Abd: normal BS, soft, non-tender Back: dressing in place is dry, RONNY drain with serosanguineous drainage Ext: no cyanosis, no calf tenderness; distal pulses intact, sensation to light touch intact, bilateral pedal pushes and pulls intact Neuro: A&O x 3, no focal deficits noted, normal affect Skin: warm, dry Results & Data Vital Signs (Past 12 Hours) Vital Signs Temp Pulse Resp BP Pulse Ox 12/03/18 07:52 36.8 C 80 18 121/51 L 95 12/03/18 03:10 36.7 C 79 16 122/69 91 12/02/18 23:30 36.6 C 85 16 117/76 92 Laboratory Results Short CBC 12/03/18 Range/Units 05:26 WBC 6.72 (4.8-10.8) K/uL Hgb 9.5 L (12.0-16.0) g/dL Hct 28.2 L (37-47) % Plt Count 116 L (130-400) K/uL BMP 12/03/18 05:26 Sodium 140 Potassium 5.0 Chloride 107 Carbon Dioxide 27 BUN 14 Creatinine 0.95 Glucose 115 H Calcium 8.5
--- NOTE | 2018-12-03 11:58 | Orthopedic Progress Note ---
Date of Service December 03, 2018 Assessment & Plan (1) Lumbar stenosis with neurogenic claudication: This time will initiate physical therapy advance her bowel regimen anticipate discharge home this weekend. Present on Admission?: Yes Subjective Patient's back pain is controlled leg symptoms improved. Physical Exam Physical Exam: On exam she is good strength testing appears comfortable. Results & Data Vital Signs (Past 12 Hours) Vital Signs Temp Pulse Resp BP Pulse Ox 12/03/18 07:52 36.8 C 80 18 121/51 L 95 12/03/18 03:10 36.7 C 79 16 122/69 91
[2018-12-03] MEDS: TRAZODONE HCL 100 MG TAB PO SCH (20:34)
[2018-12-03] MEDS: DOCUSATE SODIUM/SENNA 50/8.6MG TAB PO SCH (20:34)
[2018-12-04] MEDS: POLYETHYLENE (MIRALAX) 17 GM PACK PO SCH ×3 (00:38→11:12)
[2018-12-04 06:04] LABS: Hemoglobin 9.7 g/dL (12.0-16.0); Mean Corpuscular Hemoglobin 30.5 pg (25-34); Mean Corpuscular Hgb Conc 33.4 g/dL (32-36); Mean Corpuscular Volume 91.2 fL (80-100); Mean Platelet Volume 8.9 fL (7.4-10.4); Platelet Count 112 K/uL (130-400); RDW Coefficient of Variation 14.1 % (11.5-14.5); Red Blood Count 3.18 M/uL (4.2-5.4); White Blood Count 6.65 K/uL (4.8-10.8)
[2018-12-04 06:38] LABS: BUN Creatinine Ratio 19.6 (10-20); Calcium 8.6 mg/dl (8.5-10.1); Creatinine Clr Calc Pharmacy 56.9 ml/min; Est GFR (African American) 59.6; Est GFR (Non-African American) 51.5; Potassium 4.2 mmol/L (3.5-5.1)
[2018-12-04] MEDS: OXYCODONE HCL IR 5 MG TAB (IMMEDIATE RELEASE) PO PRN ×3 (07:46→19:05)
[2018-12-04] MEDS: lisinopriL 10 MG TAB PO SCH (07:49)
[2018-12-04] MEDS: ROSUVASTATIN CALCIUM 20 MG TAB PO SCH (07:50)
[2018-12-04] MEDS: PANTOprazole 40 MG TAB PO SCH (07:50)
[2018-12-04] MEDS: FUROSEMIDE 40 MG TAB PO SCH (07:50)
[2018-12-04] MEDS: GABAPENTIN 300 MG CAP PO SCH ×3 (07:50→20:48)
[2018-12-04] MEDS: CYANOCOBALAMIN 500 MCG TABLET (VITAMIN B-12) PO SCH (07:51)
[2018-12-04] MEDS: METOPROLOL SUCC 50MG EXT REL TAB PO SCH (07:51)
[2018-12-04] MEDS: hydrOXYzine HCl 10 MG TAB PO SCH ×2 (07:52→13:24)
--- NOTE | 2018-12-04 11:07 | Hospitalist Progress Note ---
Date of Service December 04, 2018 Assessment & Plan (1) Status post lumbar surgery: Post op day# 2 S/P Revision and lumbar decompression and fusion by Dr Coates EBL# 425ml, total RONNY drain output: 500ml Doing well with pain controlled -pain management per ortho -wound management per ortho -PT/OT as appropriate -DVT prophylaxis per ortho -incentive spirometry -Hgb stable at 9.7, and 9.5 yesterday. Was 12 pre-op (2) Hypertension: Stable -Continue metoprolol, lisinopril, lasix (3) CKD (chronic kidney disease), stage III: Cr: 1.0 on pre-op labs 11/16/18 Cr: 1.0 today -Monitor renal functions -Avoid nephrotoxic agents when possible (4) Anxiety: Generalized Anxiety And Depression as per medical records -continue home medications of trazodone, hydroxyzine, prn ativan (5) GERD (gastroesophageal reflux disease): -Continue PPI, H2 terrence (6) Hyperlipidemia: -Continue statin (7) Sleep apnea: Pt did not use her CPAP HS -CPAP HS (8) Morbid obesity: BMI: 41 -lifestyle modifications recommended DVT Prophylaxis -SCDs Pt was seen and care coordinated with Dr Butler. See addendum Supervising Physician Co-Signing Physician Notes Patient is seen and examined at bedside. Less back pain today. +Flatus. Denies any numbness or tingling in lower extremities. Denies chest pain, SOB, dizziness, nausea. On exam patient is obese, no apparent distress, normocephalic atraumatic, lungs are clear to auscultation, S1-S2, no murmur, abdomen soft nontender, back--surgical site in dressing,+ RONNY drain, trace pedal edema, grossly no focal neurological deficits. S/P: Lumbar decompression fusion by Dr. Coates. POD #2. Activity, DVT prophylaxis, wound care as per primary team. Continue bowel regimen for constipation. Monitor for blood loss anemia. HTN: Stable. Continue current medications. I personally reviewed the record. Patient is interviewed and examined at bedside. Patient's care is coordinated with Delia Andrews PA-C. Please refer to the documentation above for details of patient's presentation and for discussion of other issues. Subjective Pt seen and examined. Sitting in bedside chair. Reports back pain decreased today. Reports has been ambulating and denies lower extremity weakness or paresthesias. Denies any nausea or vomiting and has been eating well. Denies BM yet since surgery however feels like she will possibly have BM today. Urinating without difficulty. Pt did not use her CPAP last night. Denies fever/ chills, WHITE, dizziness, syncope, CP, SOB, cough, abdominal pain, extremity edema, rashes, urinary symptoms. Review of Systems Review of Systems: All systems reviewed & are unremarkable except as noted in HPI & below Physical Exam Physical Exam: General: no distress, WDWN Head: normocephalic, atraumatic Eyes: conjunctiva non-injected, anicteric ENT: normal inspection external ears, nose, mucous membranes moist Neck: supple, trachea midline Lungs: clear, no respiratory distress, no wheezing/rhonchi/rales CV: RRR, no murmur, no pretibial edema Abd: normal BS, soft, non-tender Back: RONNY drain in place, dressing intact and dry Ext: no cyanosis, no calf tenderness; ROM extremities intact, distal pulses intact Neuro: A&O x 3, no focal deficits noted, normal affect Skin: warm, dry Results & Data Vital Signs (Past 12 Hours) Vital Signs Temp Pulse Resp BP BP Pulse Ox 12/04/18 06:10 37.6 C H 93 H 16 119/83 94 12/03/18 23:08 37.1 C 80 16 104/67 94 Laboratory Results Short CBC 12/04/18 Range/Units 05:30 WBC 6.65 (4.8-10.8) K/uL Hgb 9.7 L (12.0-16.0) g/dL Hct 29.0 L (37-47) % Plt Count 112 L (130-400) K/uL BMP 12/04/18 05:30 Sodium 137 Potassium 4.2 D Chloride 100 Carbon Dioxide 33 H BUN 21 H Creatinine 1.07 Glucose 108 H Calcium 8.6
--- NOTE | 2018-12-04 16:00 | Orthopedic Progress Note ---
Date of Service December 04, 2018 Assessment & Plan (1) Lumbar stenosis with neurogenic claudication: This time we will maintain the RONNY drain. We will continue activity as tolerated. Anticipate discharge home tomorrow. Present on Admission?: Yes Subjective Patient's back pain is much improved today. Leg symptoms improved. Physical Exam Physical Exam: Patient is in the chair at the bedside. She has good strength testing. Results & Data Vital Signs (Past 12 Hours) Vital Signs Temp Pulse Resp BP BP Pulse Ox 12/04/18 15:11 36.6 C 77 16 105/71 93 12/04/18 06:10 37.6 C H 93 H 16 119/83 94
[2018-12-04] MEDS: DOCUSATE SODIUM/SENNA 50/8.6MG TAB PO SCH (20:49)
[2018-12-04] MEDS: TRAZODONE HCL 100 MG TAB PO SCH (20:49)
--- NOTE | 2018-12-05 08:51 | Orthopedic Progress Note ---
Date of Service December 05, 2018 Assessment & Plan (1) Status post lumbar surgery: Patient is being discharged home on postoperative day 3. She had an uncomplicated postoperative course. Her sections have been reviewed in detail upon discharge. Supervising Physician Co-Signing Physician Notes Dr. Micah Coates Subjective She is postoperative day 3 lumbar decompression fusion. She is doing well. She had a bowel movement yesterday. Leg pain is greatly improved. Back pain is controlled. RONNY drain output last shift was 30 cc. She is anxious to return home. Review of Systems Review of Systems: All systems reviewed & are unremarkable except as noted in HPI & below Physical Exam Physical Exam: She is alert and oriented x3. She sitting in chair. No obvious distress. Lumbar dressing is clean dry and intact. Calf soft nontender bilateral lower extremity's. Strength is intact bilateral lower extremities. Results & Data Vital Signs (Past 12 Hours) Vital Signs Temp Pulse Resp BP BP Pulse Ox 12/05/18 07:30 36.8 C 79 17 114/77 91 12/04/18 23:51 96 12/04/18 23:48 36.7 C 80 14 106/69 75 L
--- NOTE | 2018-12-05 08:53 | Discharge Summary ---
Date of Service December 05, 2018 Admission HPI Per Admitting Provider This is a 73-year-old female well-known to the presents with chronic persistent back and leg pain. After failing extensive course of nonoperative care is here for surgical intervention. Admission Exam (Per Admitting) Constitutional WD/WN, vitals as above well developed Eyes normal visual batista by confrontation ENMT external ear and nose normal, oropharynx normal Neck normal visual inspection Respiratory normal respiratory effort Cardiovascular Vessels: normal peripheral pulses Extremities: normal capillary refill Chest (Breasts) Chest: normal inspection of chest Gastrointestinal (Abdomen) Inspection/Auscultation: abdomen normal to inspection Musculoskeletal no cyanosis or clubbing, extremities motor strength 5/5 Skin no rashes, warm and dry Neurologic patellar DTR's 2+ bilat, sensation intact normal touch/pain/proprioception, CN's II-XI intact bilaterally, deep tendon reflexes 2+ bilaterally and moves all extremities Discharge Data Consultations 12/02/18 15:07 Consult Case Management - Discharge Planning Routine Consult Hospitalist Routine Procedures Performed Operation Date: 12/02/18 11:45 Actual Procedures p L3-L4 Decompression, L3-L4, L4-L5 Fusion, Spinal Cord Monitoring(Not Applicable) - Micah Coates DO s L4-L5 Hardware Removal,(Not Applicable) - Micah Coates DO Hospital Course (1) Status post lumbar surgery: Patient had an uncomplicated postoperative course. She is being discharged home on postop day 3. She had a bowel movement on postoperative day 2. Leg pain is controlled. Back pain is controlled. Lab values were stable. Discharge Instructions ACTIVITY RECOMMENDATIONS: SELF CARE INSTRUCTIONS AFTER THORACIC/LUMBAR FUSIONS 1. You may walk to your tolerance. It is good exercise for your legs and back. Expect some back and intermittent leg aches and pains. 2. You may perform "counter-top" level activities (make a sandwich, giuseppe with a project, etc.). 3. No bending or lifting of more than 10 pounds or back twisting of any nature (roll like a log when turning in bed). 4. You may ride in a car for 20-30 minutes at a time. No driving until after your first visit with your doctor. 5. Frequent changes of position and restricting sitting to 30 minutes at a time will help limit the amount of back spasms and stiffness you may experience. 6. You may discontinue the use of ambulatory aids (cane, crutches, etc.) once your strength and confidence allow. 7. You may facility maintenance mechanic the shower and let water strike your incision when you arrive home at least once daily. Do not take a tub bath, sit in a hot tub or go into a swimming pool until after your first recheck in the office. SPECIAL CARE INSTRUCTIONS: VERY IMPORTANT TO READ AND REVIEW A. Your surgical incision has been closed with a cosmetic suture under the skin that will dissolve in about 6 weeks. In 14 days, you can use a pair of clean scissors and cut the suture that is left outside of the skin at the ends of your incision. 1. The small skin tapes can be removed 7 days after surgery if they have not fallen off by that point. 2. You may keep the wound open to air as much as possible to promote healing after post-op day number 5 unless told otherwise by your doctor. 3. If you think the wound looks like it is becoming infected (redness or worsening drainage) and/or you are experiencing fever, chill or worsening back pain and muscle spasms, contact the office so that we may evaluate you as soon as possible. B. Complications are uncommon, but please contact us if you have any signs or symptoms of: 1. wound infection (fever higher than 102.5 degrees F, redness, separation of wound, drainage, or increasing pain from the incision) 2. blood clots in legs (pain, swelling, redness and warmth in legs) 3. urinary tract infection (fever higher than 102.5 degrees F, burning upon urination or increased frequency of urination) 4. nerve problems (inability to walk on your toes or heels, numbness, loss of bowel or bladder control) 5. any other symptoms that concern you C. Please call the office at if you have any concerns or questions about your operation or recovery. D. No smoking! Smoking drastically decreases the chance of a solid fusion. E. Do not take any anti-inflammatory medications (Indocin, Advil, Motrin, Aspirin, Naprosyn, etc.) as these may inhibit the chance of a solid fusion. Tylenol is okay to take for pain. MANAGING PAIN AFTER SPINAL SURGERY 1. Narcotic medication is intended for short-term use and will be provided for surgical pain. Surgical pain usually lasts for a period of 4-6 weeks. Narcotic medication includes Percocet, Vicodin, Darvocet, Tylenol #3 or Lortab. 2. Longer-term pain is more appropriately treated with non-narcotic medication such as Tylenol ES. 3. Muscle spasm is not appropriately treated with narcotics. Muscle relaxers such as Soma, Flexeril or Skelaxin can be used along with Tylenol ES. 4. Remember that we all live with some "aches and pains". This is not unusual or uncommon after an injury or as we get older. a. Back pain is expected and may include muscle spasms for 4 to 6 weeks after surgery. The pain should gradually improve. If the pain worsens for no apparent reason, please contact the office. b. Intermittent leg pain may also be experienced and should not be concerned about unless it worsens for no apparent reason. If so, please contact the office. 5. We will provide appropriate medication within the normal guidelines of their prescribed use. We will also be very cautious and aware of potential abuse and extended duration of patients' medication needs. a. Pain medications are for your comfort and to assist with sleep and rest so that the tissue can heal. They are not provided in order to return to normal activity and should not be used through the day. To do so or worsening pain at night can result from ongoing tissue damage and development of tolerance to the prescribed medicine. 6. Please allow 2-3 days to process refills. Prescriptions will not be mailed but must be picked up at the office. FOLLOW UP VISIT: Keep your scheduled follow-up appointment. Any questions, please call the office at . Supervising Physician Co-Signing Physician Notes Dr. Micah Coates
[2018-12-05] MEDS: PANTOprazole 40 MG TAB PO SCH (09:20)
[2018-12-05] MEDS: GABAPENTIN 300 MG CAP PO SCH (09:20)
[2018-12-05] MEDS: METOPROLOL SUCC 50MG EXT REL TAB PO SCH (09:20)
[2018-12-05] MEDS: lisinopriL 10 MG TAB PO SCH (09:21)
[2018-12-05] MEDS: FUROSEMIDE 40 MG TAB PO SCH (09:21)
[2018-12-05] MEDS: ROSUVASTATIN CALCIUM 20 MG TAB PO SCH (09:21)
[2018-12-05] MEDS: hydrOXYzine HCl 10 MG TAB PO SCH (09:21)
[2018-12-05] MEDS: CYANOCOBALAMIN 500 MCG TABLET (VITAMIN B-12) PO SCH (09:21)
[2018-12-05] MEDS: OXYCODONE HCL IR 5 MG TAB (IMMEDIATE RELEASE) PO PRN (09:25)
[2018-12-06] MEDS ORDERED: ERGOCALCIFEROL 50,000 UNITS CAP PO SCH (09:00)
== END 2018-12-05 11:00 | disposition home or self-care (01) | DRG 454 ==
LOC: ASU 10:14 → 3E 13:30